=== PATIENT | female | born 1985 | race Caucasian/White ===

== ENCOUNTER 2016-08-04 17:24 | Emergency (ER) | payer OTHER ==
[2016-08-04 17:28] VITALS: BP 120/74
== END 2016-08-04 19:33 | disposition left against medical advice (07) ==
LOC: ED 17:24
DX: R10.9 Unspecified abdominal pain (principal)

== ENCOUNTER 2016-11-22 09:38 | Emergency (ER) | payer OTHER ==
[2016-11-22 09:56] VITALS: BP 136/84
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
--- NOTE | 2016-11-22 11:35 | RAD ---
Indication: Fall, left knee pain. 4 views of left knee demonstrates no joint effusion. No fractures identified. Joint spaces all well-preserved. IMPRESSION: UNREMARKABLE LEFT KNEE.
== END 2016-11-22 11:54 | disposition home or self-care (01) ==
LOC: UCEAST 09:38
DX: S80.02XA Contusion of left knee, initial encounter (principal); W17.89XA Other fall from one level to another, initial encounter; Y93.89 Activity, other specified; Y92.9 Unspecified place or not applicable; F17.210 Nicotine dependence, cigarettes, uncomplicated
CPT/HCPCS: 99212; G0463

== ENCOUNTER 2018-06-11 16:03 | Emergency (ER) | payer OTHER ==
--- OUTSIDE RECORDS SUMMARY | 2018-06-11 16:09 | XMS REPORT | Continuity of Care Document ---
:1985 External Reference #:[id number] Author Name Gianfranco Barnhart M.D. Address [address] [place] [address] Care Team Providers Name Role Phone Tsering Mohamud NP Care Team Information Supervisor [facility] Unavailable Payers Type Date Identification Numbers Payment Provider Subscriber Expires: 2011 Policy Number: [id number] [employer] Nilda Ulrich PayID: [id number] [address] [address] [place] [address] Effective: 2011 Policy Number: [employer] Nilda Ulrich [id number] Expires: 2015 PayID: [id number] [address] [address] [place] [address] Effective: 2015 Policy Number: Bryan Licea-Sebastian Nilda Ulrich [id number] Medicaid PayID: [id number] [address] [place] [address] Onset: 2011 Policy Number: [id number] [facility] [place] [facility] [employer] Nilda Ulrich PayID: [id number] [facility], [address] [place] [address] Advance Directives Description No Information Available Problems Date Description Provider Status Onset: 05/06/2015 Vitamin D deficiency JANICE Dodson Active Onset: 05/06/2015 Mild recurrent major depression JANICE Dodson Active Onset: 05/06/2015 Anxiety state JANICE Dodson Active Family History Date Family Member(s) Problem(s) Comments : (age 22 Years) Father due to Accident Mother Healthy First Sister Healthy Social History Type Date Description Comments Sex Unknown Lives With Sons Smoke-Free Home is smoke-free 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 Works 3rd shift. 10:15-6:30 5 days a week. Tobacco Use Start: Unknown current cigarette smoker ETOH Use Rarely consumes alcohol Recreational Drug Use Denies Drug Use Tobacco Use Start: Unknown Patient is a current smoker, smokes every day Smoking Status Reviewed: 07/26/16 Patient is a current smoker, smokes every day Seat Belt/Car Seat always uses seat belt Currently Active Patient is currently sexually active STD's 2009 PID Allergies, Adverse Reactions, Alerts Date Description Reaction Status Severity Comments 08/27/2009 Latex Active rash 04/28/2014 Neosporin red itchy rash Active 03/28/2008 NKDA Inactive Medications Medication Date Status Form Strength Qnty SIG Indications Ordering Provider Methocarbamol 05/14 Active Tablets 500mg 30tab 1-2 po qid M54.5 s prn Amol Barnhart Nicotrol 04/04 Active Inhaler 10mg 168un inhale 1 Z72.0 its cartridge denita Barnhart M.D. orally repeatedly like a cigarette 16 times per day as needed for smoking cessation Tylenol Extra Active Tablets 500mg 2 tabs by Unknown Strength /0000 mouth every 6 hours prn - last dose 0700 Vitamin D3 Active Capsules 5000Unit 1 po qd Unknown /0000 Drospirenone-Eth Active Tablets 3-0.03mg Take One Unknown inyl Estradiol /0000 Tablet By Mouth Every Day Methocarbamol 08/11 Hx Tablets 750mg 45tab take one M54.5 s tablet by Ranjan, - mouth [employer] 03/01 times a day as needed for muscle spasm; maximum daily dose=3 Naproxen 07/11 Hx Tablets 500mg 60tab 1 by mouth N64.59 s twice a Ranjan, - day (every [employer] 09/05 12 hrs) for 3 days for pain and inflammati on then as needed once a day Amoxicillin 09/20 Hx Tablets 875mg 20tab 1 tablet J02.0 Dulce /2017 s twice a Ranjan, - day x 10 [employer] Metformin HCL 07/26 Hx Tablets 500mg 60tab take one E28.2 Dulce s tablet by Ranjan, - mouth [employer] 11/04 twice a day Ergocalciferol 06/08 Hx Capsules [id number] 12cap 1 tab by s mouth Ranjan, - every week [employer] 02/28 x Escitalopram 06/07 Hx Tablets 10mg 45tab 1 07/25 by F32.9 Dulce Oxalate s mouth Ranjan, - every day [employer] 03/01 Hydroxyzine HCL 06/07 Hx Tablets 10mg 45tab 1 -3 Dulce s tablet by Ranjan, - mouth 4 [employer] 03/01 times day as needed for anxiety Hydroxyzine HCL 06/05 Hx Tablets 10mg 45tab 1 -3 F41.9 s tablet by Ranjan, - mouth 4 [employer] 06/07 times day as needed for anxiety Escitalopram 06/05 Hx Tablets 20mg 30tab take one F32.9 Dulce Oxalate s tablet by Ranjan, - mouth [employer] 06/07 every day, Ergocalciferol 05/07 Hx Capsules [id number] 12cap 1 tab by Dulce s mouth Ranjan, - every week [employer] 06/07 x Ergocalciferol 08/18 Hx Capsules [id number] 12cap 1 tab by s mouth Obey, - every week M.D. 05/06 x No Active 08/12 Hx Unknown Medications - 08/12 Escitalopram 08/12 Hx Tablets 10mg 30tab 1 by mouth F32.9 Dulce Oxalate /2014 s every day Ranjan, - [employer] 06/05 Sulfamethoxazole 04/28 Hx Tablets 800-160mg 10tab take 1 Dulce /Trimethoprim s tablet Ranjan, - twice a [employer] 08/11 day for days Prednisone 11/12 Hx Tablets 50mg 5tabs one pill 724.5 po daily Ranjan, - for 5 days [employer] 12/03 Carisoprodol 11/12 Hx Tablets 350mg 40for 1 tablet 724.5 ty qid prn Ranjan, - muscle [employer] 08/11 spasm Hydrocodone/Acet 11/12 Hx Tablets 5-325mg 15fif 1 po q6 724.5 Dulce amino teen hrs prn Ranjan, - severe [employer] 08/11 pain Ilotycin 06/07 Hx Ointment 5mg/GM 1unit apply a 371.9 s thin layer Ranjan, - to right [employer] 11/12 eye qid X 1 week Prednisone 03/08 Hx Tablets 50mg 5tabs one pill 724.9 po daily Ranjan, - for 5 days [employer] 11/12 Robaxin 03/08 Hx Tablets 500mg 60tab take on 724.9 s tab po qid Ranjan, - [employer] 11/12 Clindamycin HCL 02/01 Hx Capsules 300mg 40cap take 1 528.5 s tablet Ranjan, - every 6 [employer] 11/12 hours 10 days Etodolac 11/13 Hx Tablets 400mg 60tab take one 724.3 s tablet by Amadou Romero, - mouth [employer] 11/12 times a day for pain and inflamatio n Gabapentin 11/13 Hx Capsules 300mg 60cap take 1 724.3 Shawnt s capsule by Amadou Romero, - mouth QHS [employer] 11/12 for nerve pain, may increase to bid after 4 days Clindamycin HCL 10/05 Hx Capsules 300mg 40cap take 1 528.5 Dulce s tablet Ranjan, - every 6 [employer] 11/13 hours 10 days Amoxicillin 10/03 Hx Tablets 875mg 20tab 1 tablet 528.5 s bid x 10 Ranjan, - days [employer] 11/13 Alprazolam 10/03 Hx Tablets 0.25mg 4tabs take 1 300.00 tablet po Ranjan, - 1 hour [employer] 11/12 prior to dental appt, november repeat X 1 if needed. Hydrocodone/Acet 10/03 Hx Tablets 5-325mg 15fif 1-2 tabs 528.5 Dulce aminophen teen po q 6 hrs Ranjan, - prn [employer] 11/12 Sertraline HCL 08/06 Hx Tablets 100mg 30tab 1 po qd s Ranjan, - [employer] 11/12 Hydrocodone/Acet 08/06 Hx Tablets 5-325mg 15fif 1 po q 6 Dulce aminophen teen hrs prn Ranjan, - [employer] 11/12 Sertraline HCL 07/09 Hx Tablets 50mg 30tab 1/2 tablet 311 s for 7 days Ranjan, - then 1 tab [employer] 08/06 po qd Methocarbamol 11/06 Hx Tablets 500mg 60tab 1 po qid 724.5 s as needed Ranjan, - for muscle [employer] 05/07 spasm Cyclobenzaprine 10/20 Hx Tablets 5mg 30tab 1-2 po tid 724.5 Dulce HCL s for muscle Ranjan, - spasm, november [employer] 05/07 cause drowsiness Ibuprofen 10/20 Hx Tablets 600mg 60tab take1 724.5 s tablet qid Ranjan, - prn pain, [employer] 11/06 take with food Hydrocodone/Acet 10/20 Hx Tablets 5-325mg 15fif 1 po q6 724.5 Dulce aminophen teen hrs prn Ranjan, - severe [employer] 11/12 pain Proctosol HC 08/12 Hx Cream 2.5% 28.35 apply bid 0gm prn Dyllan Barnhart M.DValerie 11/09 Hydrocortisone 08/12 Hx Suppository 25mg 12uni Insert 1 ts suppositor Obey, - y rectally M.DValerie 11/09 2 times a day for 2 weeks for hemorrhoid s Cephalexin 10/04 Hx Capsules 500mg 21cap 1 po tid 682.9 Flor s Dyllan Bro M.D., 03/07 R.D. 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 Nick, - n 15 lbs [employer] 03/07 Lidocaine 10/08 Hx Solution 2% 100ml 15 ml po Gianfranco q3-4hr prn Dyllan Barnhart M.D. 11/23 Penicillin V 08/27 Hx Tablets 500mg 20tab 1 bid x 10 034.0 Gianfranco s Dyllan Barnhart M.D. 11/23 Excuse For Work 08/27 Hx Needs to 034.0 be out of Dyllan Barnhart work [place] 09/06 08/27-08/28/09 due to strep throat Bactrim DS 07/14 Hx Tablets 800-160mg 6tabs 1 po bid x 599.0 3 days Dyllan Barnhart M.D. 10/12 Physical Therapy 04/07 Hx eval and 726.19 treat left R. Nick, - shoulder [employer] 03/07 pain Etodolac 04/03 Hx Tablets 400mg 30tab 1 po tid 726.19 s for pain R. Nick, - and [employer] 03/07 inflamatio n Percocet 04/03 Hx Tablets 5-325mg 20twe 1-2 tabs 726.19 nty po q6hr Kirby. Nick, - prn pain [employer] 03/07 No Work 04/03 Hx no work 726.19 due to Kirby. Nick, - injury, [employer] 03/07 re-evaluat e Tues Apr 07 2009 Relafen 11/11 Hx Tablets 750mg 60tab take one 724.9 s pill with K.W. - food twice Usman, 03/07 daily with M.D. food for relief of inflammati on Flexeril 11/11 Hx Tablets 10mg 30tab 1 po tid 724.9 s prn back K.W. - pain, Usman, 03/07 muscle M.D. spasms Triamcinolone 06/06 Hx Cream 0.1% 15gm Apply To Affected Obey, - Area bid M.D. 09/04 Work Restriction 02/27 Hx needs to work for 4 Barnhart, - hours per M.D. 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 03/07 05/22 Hx Tablets 30tab 1 qd Gianfranco Dyllan Meyers M.DValerie 03/07 Ranitidine 10/29 Hx Tablets 150mg 60tab 1 po bid tammy Barnhart - M.D. 05/22 [employer] 06/27 Hx Tablets 10mg 6tabs Take On Pill Stat Obey, - Upon Onset M.D. 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 07/15 return to school on:12/09/02 Ortho Evra Hx 3unit one patch Unknown Contraceptive /0000 s once per Patch - week for 3 07/15 weeks, then one week without patch each month Control Hx Unknown Pill /0000 - 08/11 Ocella Hx Tablets 3-0.03mg Take One Unknown /0000 Tablet By - Mouth 04/04 Every Day /2017 Medications Administered in Office Medication Date Status Form Strength Qnty SIG Indications Ordering Provider TB,Intradermal Administered Injection Dulce (PPD, Mantoux) 012 JANICE Molina TB,Intradermal Administered Injection Dulce (PPD, Mantoux) 011 JANICE Molina TB,Intradermal Administered Injection Lab and (PPD, Mantoux) 009 Office Services Immunizations CPT Code Status Date Vaccine Lot # [id number] Given 04/18/2018 Influenza Virus Vaccine, Quadrivalent, 3 Yr > [id number] Quad, Preserv Free 18219 Given 07/11/2017 Influenza Virus Vaccine, Quadrivalent, 3 Yr > [id number] Quad, Preserv Free 14633 Given 07/26/2016 Tdap (Adacel) [id number] 14213 Given 08/06/2009 H1N1 Influenza Vaccine [id number] 85585 Given 08/06/2009 H1N1 Immunization Administration, Including Counseling 54607 Refused 04/04/2018 Influenza Virus Vaccine, Quadrivalent, 3 Yr > Quad , Preserv Free 26588 Refused 07/26/2016 Influenza Virus Vaccine, Quadrivalent, 3 Yr > Quad , Preserv Free Vital Signs Date Vital Result Comment 05/14/2018 2:10pm Weight 236.00 lb Weight 107.050 kg BP Systolic 128 mmHg BP Diastolic 80 mmHg Heart Rate 84 /min Body Temperature 97.5 F Respiratory Rate 16 /min 04/18/2018 3:43pm Weight 240.00 lb Weight 108.864 kg BP Systolic 100 mmHg BP Diastolic 68 mmHg Heart Rate 72 /min Body Temperature 98.2 F Respiratory Rate 16 /min 04/04/2018 10:50am Weight 236.00 lb Weight 107.050 kg BP Systolic 110 mmHg BP Diastolic 68 mmHg Heart Rate 88 /min Body Temperature 98.8 F Respiratory Rate 16 /min 03/08/2018 3:19pm Weight 233.00 lb Weight 105.689 kg BP Systolic 132 mmHg BP Diastolic 76 mmHg Heart Rate 80 /min Body Temperature 97.8 F Respiratory Rate 12 /min 03/01/2018 10:24am Weight 237.00 lb Weight 107.503 kg BP Systolic 103 mmHg BP Diastolic 80 mmHg Heart Rate 64 /min Body Temperature 97.7 F O2 % BldC Oximetry 99 % 09/05/2017 3:15pm Weight 235.00 lb Weight 106.596 kg BP Systolic 110 mmHg BP Diastolic 80 mmHg Heart Rate 72 /min Body Temperature 97.7 F Respiratory Rate 14 /min Height 62 inches 5'2" BMI (Body Mass Index) 43.0 kg/m2 08/11/2017 12:03pm Weight 235.00 lb Weight 106.596 kg BP Systolic 130 mmHg BP Diastolic 72 mmHg Heart Rate 78 /min Body Temperature 97.3 F Respiratory Rate 16 /min O2 % BldC Oximetry 98 % 07/11/2017 3:08pm Weight 232.00 lb Weight 105.235 kg BP Systolic 128 mmHg BP Diastolic 72 mmHg Heart Rate 80 /min Body Temperature 98.6 F Respiratory Rate 15 /min O2 % BldC Oximetry 98 % 01/04/2017 11:24am Weight 239.00 lb Weight 108.410 kg BP Systolic 118 mmHg BP Diastolic 76 mmHg Heart Rate 84 /min Body Temperature 97.5 F Respiratory Rate 16 /min 11/22/2016 5:00pm Weight 240.00 lb Weight 108.864 kg BP Systolic 114 mmHg BP Diastolic 78 mmHg Heart Rate 72 /min Body Temperature 97.9 F Respiratory Rate 14 /min O2 % BldC Oximetry 98 % 09/20/2016 10:14am Weight 237.50 lb Weight 107.730 kg BP Systolic 110 mmHg BP Diastolic 66 mmHg Heart Rate 100 /min Body Temperature 99.2 F Respiratory Rate 18 /min O2 % BldC Oximetry 98 % 07/26/2016 11:35am Weight 234.00 lb Weight 106.142 kg BP Systolic 96 mmHg BP Diastolic 64 mmHg Heart Rate 83 /min Body Temperature 98.0 F Respiratory Rate 16 /min Height 62.5 inches 5'2.50" BMI (Body Mass Index) 42.1 kg/m2 O2 % BldC Oximetry 98 % 06/07/2016 2:23pm Weight 235.00 lb Weight 106.596 kg BP Systolic 117 mmHg BP Diastolic 78 mmHg Heart Rate 76 /min 06/05/2015 8:50am Weight 232.00 lb Weight 105.235 kg BP Systolic 116 mmHg BP Diastolic 80 mmHg Heart Rate 76 /min Height 62.5 inches 5'2.50" BMI (Body Mass Index) 41.8 kg/m2 05/06/2015 9:01am Weight 226.00 lb Weight 102.514 kg BP Systolic 110 mmHg BP Diastolic 78 mmHg Heart Rate 62 /min 08/12/2014 4:44pm Weight 232.00 lb Weight 105.235 kg BP Systolic 110 mmHg BP Diastolic 78 mmHg Heart Rate 76 /min 04/28/2014 11:22am Weight 247.00 lb Weight 112.039 kg BP Systolic 110 mmHg BP Diastolic 70 mmHg Heart Rate 72 /min Body Temperature 97.6 F 12/23/2013 2:32pm Weight 253.00 lb Weight 114.761 kg BP Systolic 106 mmHg BP Diastolic 52 mmHg Heart Rate 84 /min Body Temperature 97.6 F 12/03/2013 3:52pm Weight 257.00 lb Weight 116.575 kg BP Systolic 122 mmHg BP Diastolic 76 mmHg Heart Rate 80 /min Body Temperature 98.1 F Height 62.5 inches 5'2.50" BMI (Body Mass Index) 46.3 kg/m2 11/12/2013 3:06pm Weight 261.00 lb Weight 118.390 kg BP Systolic 112 mmHg BP Diastolic 78 mmHg Heart Rate 72 /min Last Menstrual Period [id number] 06/07/2013 9:25am Weight 258.00 lb Weight 117.029 kg BP Systolic 100 mmHg BP Diastolic 70 mmHg Heart Rate 96 /min Body Temperature 97.2 F Right Visual Acuity Distance 20/25 corrected Left Visual Acuity Distance 20/50 corrected Both Visual Acuity Distance 20/20 corrected 03/08/2013 11:27am Weight 252.00 lb Weight 114.307 kg BP Systolic 130 mmHg BP Diastolic 76 mmHg Heart Rate 84 /min Body Temperature 97.9 F 02/01/2013 10:43am Weight 253.00 lb Weight 114.761 kg BP Systolic 110 mmHg BP Diastolic 70 mmHg Heart Rate 72 /min Body Temperature 97.8 F 2012 10:24am Weight 249.00 lb Weight 112.946 kg BP Systolic 99 mmHg BP Diastolic 74 mmHg Heart Rate 76 /min 10/05/2012 3:04pm BP Systolic 118 mmHg BP Diastolic 66 mmHg Heart Rate 76 /min Body Temperature 98.4 F 10/03/2012 3:30pm Weight 246.00 lb Weight 111.586 kg BP Systolic 120 mmHg BP Diastolic 78 mmHg Heart Rate 76 /min Body Temperature 97.8 F 08/06/2012 4:09pm Weight 241.00 lb Weight 109.318 kg BP Systolic 100 mmHg BP Diastolic 78 mmHg Heart Rate 88 /min 07/09/2012 4:02pm Weight 242.00 lb Weight 109.771 kg BP Systolic 114 mmHg BP Diastolic 68 mmHg Heart Rate 88 /min 05/07/2012 1:37pm Weight 235.00 lb Weight 106.596 kg BP Systolic 102 mmHg BP Diastolic 60 mmHg Heart Rate 89 /min Height 62 inches 5'2" BMI (Body Mass Index) 43.0 kg/m2 04/10/2012 2:16pm Weight 238.00 lb Weight 107.957 kg BP Systolic 96 mmHg BP Diastolic 64 mmHg Heart Rate 100 /min Body Temperature 99.2 F O2 % BldC Oximetry 98 % AT Room Air 01/16/2012 3:37pm Weight 230.00 lb Weight 104.328 kg BP Systolic 100 mmHg BP Diastolic 70 mmHg Heart Rate 108 /min 12/30/2011 2:13pm Weight 230.00 lb Weight 104.328 kg BP Systolic 110 mmHg BP Diastolic 70 mmHg Heart Rate 80 /min 12/21/2011 11:38am Weight 230.00 lb Weight 104.328 kg BP Systolic 116 mmHg BP Diastolic 70 mmHg Heart Rate 72 /min Body Temperature 98.7 F 12/06/2011 3:45pm Weight 226.00 lb Weight 102.514 kg BP Systolic 100 mmHg BP Diastolic 80 mmHg Heart Rate 88 /min 11/23/2011 2:58pm Weight 224.00 lb Weight 101.606 kg BP Systolic 106 mmHg BP Diastolic 70 mmHg Heart Rate 100 /min 11/14/2011 9:48am Weight 224.00 lb Weight 101.606 kg BP Systolic 100 mmHg BP Diastolic 80 mmHg Heart Rate 92 /min 11/07/2011 11:16am Weight 222.00 lb Weight 100.699 kg BP Systolic 100 mmHg BP Diastolic 64 mmHg Heart Rate 88 /min Body Temperature 98.4 F 10/21/2011 4:06pm Weight 220.00 lb Weight 99.792 kg BP Systolic 110 mmHg BP Diastolic 62 mmHg Heart Rate 88 /min Body Temperature 99.0 F 08/12/2011 12:58pm Weight 218.00 lb Weight 98.885 kg BP Systolic 106 mmHg BP Diastolic 80 mmHg Heart Rate 72 /min 03/07/2011 1:33pm Weight 230.00 lb Weight 104.328 kg BP Systolic 108 mmHg BP Diastolic 70 mmHg Heart Rate 72 /min Height 62.25 inches 5'2.25" BMI (Body Mass Index) 41.7 kg/m2 10/04/2010 2:57pm Weight 242.00 lb Weight 109.771 kg BP Systolic 118 mmHg BP Diastolic 74 mmHg Heart Rate 80 /min Body Temperature 98.0 F 09/21/2010 9:37am Weight 240.00 lb Weight 108.864 kg BP Systolic 102 mmHg BP Diastolic 70 mmHg Heart Rate 64 /min Body Temperature 98.4 F 11/23/2009 11:33am Weight 232.00 lb Weight 105.235 kg BP Systolic 100 mmHg BP Diastolic 70 mmHg Heart Rate 80 /min 10/08/2009 4:53pm Weight 225.00 lb Weight 102.060 kg BP Systolic 104 mmHg BP Diastolic 82 mmHg Heart Rate 84 /min 08/27/2009 3:20pm Weight 287.00 lb Weight 130.183 kg BP Systolic 90 mmHg BP Diastolic 60 mmHg Heart Rate 96 /min Body Temperature 98.9 F 07/14/2009 3:54pm Weight 232.00 lb Weight 105.235 kg BP Systolic 108 mmHg BP Diastolic 8 mmHg Heart Rate 60 /min Body Temperature 97.9 F Last Menstrual Period [id number] 04/07/2009 11:19am Weight 244.00 lb Weight 110.678 kg BP Systolic 106 mmHg BP Diastolic 70 mmHg Heart Rate 88 /min 04/03/2009 2:26pm Weight 241.00 lb Weight 109.318 kg BP Systolic 118 mmHg BP Diastolic 72 mmHg Heart Rate 76 /min 11/11/2008 11:49am Weight 239.00 lb Weight 108.410 kg BP Systolic 112 mmHg BP Diastolic 68 mmHg Heart Rate 76 /min Body Temperature 98.3 F 09/03/2008 11:46am Weight 229.00 lb Weight 103.874 kg BP Systolic 118 mmHg BP Diastolic 80 mmHg Heart Rate 78 /min Respiratory Rate 18 /min 06/06/2008 11:47am Weight 221.00 lb Weight 100.246 kg BP Systolic 110 mmHg BP Diastolic 60 mmHg Heart Rate 64 /min Body Temperature 98.3 F oral 03/28/2008 11:41am Weight 221.00 lb Weight 100.246 kg BP Systolic 110 mmHg BP Diastolic 68 mmHg Heart Rate 58 /min 05/22/2007 3:33pm Weight 218.00 lb Weight 98.885 kg BP Systolic 112 mmHg BP Diastolic 78 mmHg Heart Rate 72 /min 04/03/2007 10:23am Weight 211.00 lb Weight 95.710 kg BP Systolic 110 mmHg BP Diastolic 70 mmHg Heart Rate 60 /min Respiratory Rate 18 /min 06/21/2006 2:05pm Weight 226.00 lb Weight 102.514 kg BP Systolic 100 mmHg BP Diastolic 60 mmHg Heart Rate 64 /min 12/15/2005 4:09pm Weight 226.00 lb Weight 102.514 kg BP Systolic 98 mmHg BP Diastolic 62 mmHg Heart Rate 68 /min 10/21/2004 4:44pm Weight 248.00 lb Weight 112.493 kg BP Systolic 110 mmHg BP Diastolic 70 mmHg Heart Rate 80 /min Body Temperature 97.3 F Respiratory Rate 18 /min 07/15/2004 2:54pm Weight 239.00 lb Weight 108.410 kg BP Systolic 110 mmHg BP Diastolic 70 mmHg 06/27/2003 2:14pm Weight 221.00 lb Weight 100.246 kg BP Systolic 120 mmHg BP Diastolic 80 mmHg Weight Percentile >95th 11/25/2002 3:51pm Weight 201.00 lb Weight 91.174 kg BP Systolic 120 mmHg BP Diastolic 80 mmHg Weight Percentile >95th Results Test Date Facility Test Result H/L Range Note Urine DIP 04/04/2018 [facility] Leukocytes NEG Neg (607)- - Urine Nitrites NEG Neg Urobilinogen NORM Norm Total Protein, Urine NEG Neg Urine pH 6 5-6 Urine Blood NEG Neg Specific [place] 1.010 1.01-1.02 Urine Ketones NEG Neg Urine Bilirubin NEG Neg Urine Glucose NORM Norm Urine DIP 03/01/2018 [facility] Leukocytes NEG Neg (607)- - Urine Nitrites NEG Neg Urobilinogen NORM Norm Total Protein, Urine NEG Neg Urine pH 5 5-6 Urine Blood NEG Neg Specific [place] 1.015 1.01-1.02 Urine Ketones NEG Neg Urine Bilirubin NEG Neg Urine Glucose NORM Norm Laboratory test 03/01/2018 [facility] Vitamin D Total 42.8 20-50 finding [phone] 25(Oh) ng/mL Testosterone Free 03/01/2018 [facility] Free 0.19 0.06-1.03 1 & Total [phone] Testosterone ng/dL ng/dl Testosterone 31 ng/dL 8-60 2 Laboratory test 03/01/2018 [facility] Prolactin 5.4 ng/mL 1.0-25.0 finding [phone] Laboratory test 03/01/2018 [facility] Vitamin D Total <pending> finding [phone] 25(Oh) CBC Auto Diff 03/01/2018 [facility] White Blood 7.2 3.5-10.8 [phone] Count 10^3/uL Red Blood Count 4.19 10^6/uL 4.00-5.40 Hemoglobin 12.8 g/dL 12.0-16.0 Hematocrit 36 % 35-47 Mean Corpuscular Volume 86 fL 80-97 Mean Corpuscular Hemoglobin 31 pg 27-31 Mean Corpuscular HGB Conc 35 g/dL 31-36 Red Cell Distribution Width 13 % 10.5-15 Platelet Count 324 10^3/uL 150-450 Mean Platelet Volume 8.5 um3 7.4-10.4 Abs Neutrophils 3.9 10^3/uL 1.5-7.7 Abs Lymphocytes 2.7 10^3/uL 1.0-4.8 Abs Monocytes 0.4 10^3/uL 0-0.8 Abs Eosinophils 0.1 10^3/uL 0-0.6 Abs Basophils 0.1 10^3/uL 0-0.2 Abs Nucleated RBC 0 10^3/uL Granulocyte % 54.1 % 38-83 Lymphocyte % 37.5 % 25-47 Monocyte % 5.3 % 0-7 Eosinophil % 2.0 % 0-6 Basophil % 1.1 % 0-2 Nucleated Red Blood Cells % 0 Fractionated Estrogens 03/01/2018 [facility] Estrone ( E1) 54 pg/mL 3 [phone] Estradiol (E2) 15 pg/mL 4 Comp Metabolic Panel 03/01/2018 [facility] Sodium 138 mmol/L 135-145 [phone] Potassium 4.1 mmol/L 3.5-5.0 Chloride 109 mmol/L 101-111 Co2 Carbon Dioxide 22 mmol/L 22-32 Anion Gap 7 mmol/L 2-11 Glucose 145 mg/dL High 70-100 Blood Urea Nitrogen 6 mg/dL 6-24 Creatinine 0.70 mg/dL 0.51-0.95 BUN/Creatinine Ratio 8.6 8-20 Calcium 9.1 mg/dL 8.6-10.3 Total Protein 6.1 g/dL Low 6.4-8.9 Albumin 3.8 g/dL 3.2-5.2 Globulin 2.3 g/dL 2-4 Albumin/Globulin Ratio 1.7 1-3 Total Bilirubin 0.30 mg/dL 0.2-1.0 Alkaline Phosphatase 41 U/L 34-104 Alt 11 U/L 7-52 Ast 11 U/L Low 13-39 Egfr Non- 96.4 >60 Egfr 116.6 >60 5 Laboratory test 03/01/2018 [facility] TSH (Thyroid 2.21 0.34-5.60 finding [phone] Stimulating mcIU/mL Horm) Follicle Stimulating Hormone 3.8 mIU/mL 6 Luteinizing Hormone 5.2 mcIU/mL 7 Laboratory test 10/02/2017 [facility] Cytology SEE RESULT 8, 9 finding [phone] BELOW CBC Auto Diff 07/11/2017 [facility] White Blood 4.5 10^3/uL 3.5-5 [phone] Count 0.8 Red Blood Count 4.62 10^6/uL 4.0-5.4 Hemoglobin 13.9 g/dL 12.0-16.0 Hematocrit 41 % 35-47 Mean Corpuscular Volume 89 fL 80-97 Mean Corpuscular Hemoglobin 30 pg 27-31 Mean Corpuscular HGB Conc 34 g/dL 31-36 Red Cell Distribution Width 14 % 10.5-15 Platelet Count 341 10^3/uL 150-450 Mean Platelet Volume 9 um3 7.4-10.4 Abs Neutrophils 1.9 10^3/uL 1.5-7.7 Abs Lymphocytes 1.7 10^3/uL 1.0-4.8 Abs Monocytes 0.6 10^3/uL 0-0.8 Abs Eosinophils 0.1 10^3/uL 0-0.6 Abs Basophils 0.1 10^3/uL 0-0.2 Abs Nucleated RBC 0 10^3/uL Granulocyte % 42.9 % 38-83 Lymphocyte % 38.0 % 25-47 Monocyte % 14.3 % High 1-9 Eosinophil % 3.3 % 0-6 Basophil % 1.5 % 0-2 Nucleated Red Blood Cells % 0 Comp Metabolic Panel 07/11/2017 [facility] Sodium 137 mmol/L 133-145 [phone] Potassium 3.9 mmol/L 3.5-5.0 Chloride 107 mmol/L 101-111 Co2 Carbon Dioxide 28 mmol/L 22-32 Anion Gap 2 mmol/L 2-11 Glucose 88 mg/dL 70-100 Blood Urea Nitrogen 10 mg/dL 6-24 Creatinine 0.74 mg/dL 0.51-0.95 BUN/Creatinine Ratio 13.5 8-20 Calcium 9.3 mg/dL 8.6-10.3 Total Protein 6.2 g/dL Low 6.4-8.9 Albumin 3.9 g/dL 3.2-5.2 Globulin 2.3 g/dL 2-4 Albumin/Globulin Ratio 1.7 1-3 Total Bilirubin 0.30 mg/dL 0.2-1.0 Alkaline Phosphatase 50 U/L 34-104 Alt 13 U/L 7-52 Ast 14 U/L 13-39 Egfr Non- 91.0 >60 Egfr 117.0 >60 10 Laboratory test 07/11/2017 [facility] TSH (Thyroid 0.98 mcIU/mL 0.34-5.60 11 finding [phone] Stim Horm) Prolactin 8.1 ng/mL 1.0-25.0 12 Laboratory test 07/11/2017 In House Lab HCG DIP Test neg Neg finding (607)- - CBC Auto Diff 01/04/2017 [facility] White Blood 10.8 3.5-10.8 [phone] Count 10^3/uL Red Blood Count 4.59 10^6/uL 4.0-5.4 Hemoglobin 13.6 g/dL 12.0-16.0 Hematocrit 41 % 35-47 Mean Corpuscular Volume 89 fL 80-97 Mean Corpuscular Hemoglobin 30 pg 27-31 Mean Corpuscular HGB Conc 33 g/dL 31-36 Red Cell Distribution Width 14 % 10.5-15 Platelet Count 289 10^3/uL 150-450 Mean Platelet Volume 10 um3 7.4-10.4 Abs Neutrophils 6.7 10^3/uL 1.5-7.7 Abs Lymphocytes 2.9 10^3/uL 1.0-4.8 Abs Monocytes 0.7 10^3/uL 0-0.8 Abs Eosinophils 0.3 10^3/uL 0-0.6 Abs Basophils 0.1 10^3/uL 0-0.2 Abs Nucleated RBC 0.01 10^3/uL Granulocyte % 62.2 % 38-83 Lymphocyte % 27.0 % 25-47 Monocyte % 6.8 % 1-9 Eosinophil % 3.2 % 0-6 Basophil % 0.8 % 0-2 Nucleated Red Blood Cells % 0.1 Inr/Protime 01/04/2017 [facility] Inr 0.89 0.89- 1.11 [phone] Laboratory test 01/04/2017 [facility] Vitamin D 16.8 Low 30-50 13 finding [phone] Total 25(Oh) ng/mL Comp Metabolic 01/04/2017 [facility] Sodium 137 133-145 Panel [phone] mmol/L Potassium 4.0 mmol/L 3.5-5.0 Chloride 106 mmol/L 101-111 Co2 Carbon Dioxide 27 mmol/L 22-32 Anion Gap 4 mmol/L 2-11 Glucose 103 mg/dL High 70-100 Blood Urea Nitrogen 10 mg/dL 6-24 Creatinine 0.67 mg/dL 0.51-0.95 BUN/Creatinine Ratio 14.9 8-20 Calcium 9.3 mg/dL 8.6-10.3 Total Protein 6.3 g/dL Low 6.4-8.9 Albumin 4.0 g/dL 3.2-5.2 Globulin 2.3 g/dL 2-4 Albumin/Globulin Ratio 1.7 1-3 Total Bilirubin 0.30 mg/dL 0.2-1.0 Alkaline Phosphatase 45 U/L 34-104 Alt 8 U/L 7-52 Ast 12 U/L Low 13-39 Egfr Non- 102.0 >60 Egfr 131.2 >60 14 GC/Chlamydia 11/22/2016 [facility] Chlamydia Negative Negative Amplified Rna [phone] trachomatis Rna Neisseria gonorrhoeae (GC) Rna Negative Negative Laboratory test 11/22/2016 [facility] Gardnerella/ Yeast: SEE RESULT 15 finding [phone] Vaginal Dna BELOW Trichomonas Vaginalis Rna Negative Negative 16 Urine DIP 11/22/2016 In House Lab Leukocytes NEG Neg (607)- - Urine Nitrites NEG Neg Urobilinogen NORM Norm Total Protein, Urine NEG Neg Urine pH 5 5-6 Urine Blood NEG Neg Specific [place] 1.015 1.01-1.02 Urine Ketones NEG Neg Urine Bilirubin NEG Neg Urine Glucose NORM Norm Laboratory test finding 11/22/2016 In House Lab Test, Urine negative (607)- - Flu Test A, B, Or A & 09/20/2016 In House Lab Influenza A Antigen neg B,Binaxn (607)- - Influenza B Antigen neg Laboratory test 09/20/2016 In House Lab Strep Screen pos Neg finding (607)- - Laboratory test 07/26/2016 [facility] Hemoglobin A1c 5.5 % Less than 17 finding [phone] (Glyco HGB) 6.0 CBC Auto Diff 07/26/2016 [facility] White Blood 7.3 3.5-10.8 [phone] Count 10^3/uL Red Blood Count 4.57 10^6/uL 4.0-5.4 Hemoglobin 13.7 g/dL 12.0-16.0 Hematocrit 41 % 35-47 Mean Corpuscular Volume 89 fL 80-97 Mean Corpuscular Hemoglobin 30 pg 27-31 Mean Corpuscular HGB Conc 34 g/dL 31-36 Red Cell Distribution Width 14 % 10.5-15 Platelet Count 380 10^3/uL 150-450 Mean Platelet Volume 9 um3 7.4-10.4 Abs Neutrophils 3.8 10^3/uL 1.5-7.7 Abs Lymphocytes 2.7 10^3/uL 1.0-4.8 Abs Monocytes 0.5 10^3/uL 0-0.8 Abs Eosinophils 0.2 10^3/uL 0-0.6 Abs Basophils 0 10^3/uL 0-0.2 Abs Nucleated RBC 0 10^3/uL Granulocyte % 52.4 % 38-83 Lymphocyte % 36.5 % 25-47 Monocyte % 7.6 % 1-9 Eosinophil % 3.0 % 0-6 Basophil % 0.5 % 0-2 Nucleated Red Blood Cells % 0 Comp Metabolic Panel 07/26/2016 [facility] Sodium 138 mmol/L 133-145 [phone] Potassium 3.8 mmol/L 3.5-5.0 Chloride 105 mmol/L 101-111 Co2 Carbon Dioxide 28 mmol/L 22-32 Anion Gap 5 mmol/L 2-11 Glucose 103 mg/dL High 70-100 Blood Urea Nitrogen 12 mg/dL 6-24 Creatinine 0.71 mg/dL 0.51-0.95 BUN/Creatinine Ratio 16.9 8-20 Calcium 9.4 mg/dL 8.6-10.3 Total Protein 6.1 g/dL Low 6.4-8.9 Albumin 4.0 g/dL 3.2-5.2 Globulin 2.1 g/dL 2-4 Albumin/Globulin Ratio 1.9 1-3 Total Bilirubin 0.30 mg/dL 0.2-1.0 Alkaline Phosphatase 52 U/L 34-104 Alt 14 U/L 7-52 Ast 15 U/L 13-39 Egfr Non- 96.0 >60 Egfr 123.5 >60 18 Lipid Profile 07/26/2016 [facility] Triglycerides 51 mg/dL 19 (Trig/Chol/HDL) [phone] Cholesterol 154 mg/dL 20 HDL Cholesterol 40.7 mg/dL 21 LDL Cholesterol 103 mg/dL 22 Laboratory test 06/07/2016 [facility] TSH (Thyroid 2.32 mcIU/mL 0.34-5.60 23 finding [phone] Stim Horm) Vitamin D Total 25(Oh) 16.3 ng/mL Low 30-50 24 HCG < 0.60 mIU/mL 25 GC/Chlamydia 12/14/2015 [facility] Chlamydia Negative Negative 26 Amplified Rna [phone] trachomatis Rna Neisseria gonorrhoeae (GC) Rna Negative Negative Laboratory test 12/14/2015 [facility] HPV Rna Negative Negative 27 finding [phone] Ww/Reflex Genotype Cytology SEE RESULT BELOW 28 Laboratory test 05/06/2015 [facility] Vitamin D 24.2 ng/mL Low 30-50 finding [phone] Total 25(Oh) Vitamin B12 296 pg/mL [phone] 29 Laboratory test 08/12/2014 [facility] TSH (Thyroid 2.14 0.34-5.60 finding [phone] Stimulating IU/mL Horm) CMP - 08/12/2014 [facility] Sodium 138 133-145 Comprehensive [phone] mmol/L Metabolic Potassium 4.0 mmol/L 3.5-5.0 Chloride 106 mmol/L 101-111 Co2 Carbon Dioxide 27 mmol/L 22-32 Anion Gap 5 mmol/L 2-11 Glucose 86 mg/dL 70-100 Blood Urea Nitrogen 12 mg/dL 6-24 Creatinine 0.70 mg/dL 0.51-0.95 BUN/Creatinine Ratio 17.1 8-20 Calcium 9.2 mg/dL 8.6-10.3 Total Protein 6.6 g/dL 6.4-8.9 Albumin 4.2 g/dL 3.2-5.2 Globulin 2.4 g/dL 2-4 Albumin/Globulin Ratio 1.8 1-3 Total Bilirubin 0.30 mg/dL 0.2-1.0 Alkaline Phosphatase 59 U/L 34-104 Alt 9 U/L 7-52 Ast 11 U/L Low 13-39 Egfr Non- 98.9 >60 Egfr 127.2 >60 30 CBC - Complete 08/12/2014 [facility] White Blood 6.3 10^3/uL 4.8-10.8 Blood Count [phone] Count Red Blood Count 4.55 10^6/uL 4.0-5.4 Hemoglobin 14.0 g/dL 12.0-16.0 Hematocrit 41 % 35-47 Mean Corpuscular Volume 90 fL 80-97 Mean Corpuscular Hemoglobin 31 pg 27-31 Mean Corpuscular HGB Conc 34 g/dL 31-36 Red Cell Distribution Width 13 % 10.5-15 Platelet Count 327 10^3/uL 150-450 Mean Platelet Volume 9 um3 7.4-10.4 Vitamin D.25 08/12/2014 [facility] 25-Hydroxy Vitamin <4.0 ng/mL Hydroxy [phone] D2 25-Hydroxy Vitamin D3 15 ng/mL 25-Hydroxy Vitamin D Total 15 ng/mL 31 Urine DIP 04/28/2014 In House Lab Specific [place] 1.015 1.01-1.02 took o (607)- - Urine pH 6 5-6 Leukocytes trace Neg Urine Nitrites pos Neg Total Protein, Urine n/a Neg Urine Glucose neg Norm Urine Ketones norm Neg Urobilinogen neg Norm Urine Bilirubin n/a Neg Urine Blood 250 High Neg Urine Cult And 04/28/2014 [facility] Urine Culture ( SEE NOTE) 32 Sens-CMC Only [phone] CBC Auto Diff 12/03/2013 [facility] White Blood 7.3 10^3/uL 4.8-10. [phone] Count 8 Red Blood Count 4.70 10^6/uL 4.0-5.4 Hemoglobin 14.3 g/dL 12.0-16.0 Hematocrit 41 % 35-47 Mean Corpuscular Volume 87 fL 80-97 Mean Corpuscular Hemoglobin 30 pg 27-31 Mean Corpuscular HGB Conc 35 g/dL 31-36 Red Cell Distribution Width 13 % 10.5-15 Platelet Count 354 10^3/uL 150-450 Mean Platelet Volume 8 um3 7.4-10.4 Abs Neutrophils 3.3 10^3/uL 1.5-7.7 Abs Lymphocytes 3.1 10^3/uL 1.0-4.8 Abs Monocytes 0.6 10^3/uL 0-0.8 Abs Eosinophils 0.2 10^3/uL 0-0.6 Abs Basophils 0.1 10^3/uL 0-0.2 Abs Nucleated RBC 0.01 10^3/uL Granulocyte % 45.4 % 38-83 Lymphocyte % 42.8 % 25-47 Monocyte % 7.9 % 1-9 Eosinophil % 2.9 % 0-6 Basophil % 1.0 % 0-2 Nucleated Red Blood Cells % 0.1 Inr/Protime 12/03/2013 [facility] Inr 0.90 0.85- 1.06 [phone] Laboratory test 12/03/2013 [facility] Activated 34.1 24.0-36.1 finding [phone] Partial seconds Thrombo Time Urinalysis 08/02/2012 [facility] Urine Color Yellow [phone] Urine Appearance Clear Urine Specific [place] 1.004 Low 1.010-1.030 Urine Esterase Negative Negative Urine Nitrate Negative Negative Urine Urobilinogen Negative E.U./dL Negative Urine Protein Negative mg/dL Negative Urine pH 7.0 5-9 Urine Blood Negative Negative Urine Ketones Negative mg/dL Negative Urine Bilirubin Negative Negative 33 Urine Glucose Negative mg/dL Negative Comp Metabolic Panel 08/02/2012 [facility] Sodium 133 mmol/L 133-145 [phone] Potassium 3.6 mmol/L 3.5-5.0 Chloride 104 mmol/L 101-111 Co2 Carbon Dioxide 23.0 mmol/L 22-32 Anion Gap 6.0 mmol/L 2-11 Glucose 93 mg/dL 70-100 Blood Urea Nitrogen 6 mg/dL 6-24 Creatinine 0.60 mg/dL 0.50-1.40 BUN/Creatinine Ratio 10.0 8-20 Calcium 8.7 mg/dL 8.1-9.9 Total Protein 6.4 g/dL 6.2-8.1 Albumin 3.7 g/dL 3.6-5.4 Globulin 2.7 g/dL 2-4 Albumin/Globulin Ratio 1.4 1-3 Total Bilirubin 0.3 mg/dL Low 0.4-1.5 Alkaline Phosphatase 46 U/L 30-110 Alt 15 U/L 14-54 Ast 19 U/L 12-42 Egfr Non- 119.9 >60 Egfr 154.2 >60 34 CBC Auto 08/02/2012 [facility] White Blood 4.6 10^3/ uL Low 4.8-10.8 Diff [phone] Count Red Blood Count 4.31 10^6/uL 4.0-5.4 Hemoglobin 13.3 g/dL 12.0-16.0 Hematocrit 38 % 35-47 Mean Corpuscular Volume 88 fL 80-97 Mean Corpuscular Hemoglobin 31 pg 27-31 Mean Corpuscular HGB Conc 35 g/dL 31-36 Red Cell Distribution Width 13 % 10.5-15 Platelet Count 286 10^3/uL 150-450 Mean Platelet Volume 9 um3 7.4-10.4 Abs Neutrophils 3.3 10^3/uL 1.5-7.7 Abs Lymphocytes 0.5 10^3/uL Low 1.0-4.8 Abs Monocytes 0.6 10^3/uL 0-0.8 Abs Eosinophils 0.1 10^3/uL 0-0.6 Abs Basophils 0 10^3/uL 0-0.2 Abs Nucleated RBC 0 10^3/uL Granulocyte % 73.1 % 38-83 Lymphocyte % 10.1 % Low 25-47 Monocyte % 14.0 % High 1-9 Eosinophil % 2.2 % 0-6 Basophil % 0.6 % 0-2 Nucleated Red Blood Cells % 0.1 Laboratory test 08/02/2012 [facility] Lipase 22 U/L 22-51 finding [phone] CMP - Comprehensive 05/07/2012 [facility] Sodium 141 mmol/L 133-145 Metabolic [phone] Potassium 3.9 mmol/L 3.5-5.0 Chloride 108 mmol/L 101-111 Co2 Carbon Dioxide 28.0 mmol/L 22-32 Anion Gap 5.0 mmol/L 2-11 Glucose 98 mg/dL 70-100 Blood Urea Nitrogen 9 mg/dL 6-24 Creatinine 0.70 mg/dL 0.50-1.40 BUN/Creatinine Ratio 12.9 8-20 Calcium 9.4 mg/dL 8.1-9.9 Total Protein 5.8 GM/DL Low 6.2-8.1 Albumin 3.7 GM/DL 3.6-5.4 Globulin 2.1 GM/DL 2-4 Albumin/Globulin Ratio 1.8 1-3 Total Bilirubin 0.4 mg/dL 0.1-1.0 35 Alkaline Phosphatase 39 U/L 30-110 Alt 16 U/L 14-54 Ast 17 U/L 12-42 Egfr Non- 100.4 >60 Egfr 129.1 >60 36 Laboratory test 05/07/2012 [facility] TSH (Thyroid 1.23 0.34-5.60 finding [phone] Stimulating MIU/ML Horm) Beta HCG Quantitative < 2.1 MIU/ML 0.0-5.0 37 CBC Auto Diff 05/07/2012 [facility] White Blood 6.5 10^3/uL 4.8-10.8 [phone] Count Red Blood Count 4.19 10^6/uL 4.0-5.4 Hemoglobin 12.9 g/dL 12.0-16.0 Hematocrit 37 % 35-47 Mean Corpuscular Volume 89 fL 80-97 Mean Corpuscular Hemoglobin 31 pg 27-31 Mean Corpuscular HGB Conc 35 g/dL 31-36 Red Cell Distribution Width 14 % 10.5-15 Platelet Count 311 10^3/uL 150-450 Mean Platelet Volume 9 um3 7.4-10.4 Abs Neutrophils 3.3 10^3/uL 1.5-7.7 Abs Lymphocytes 2.7 10^3/uL 1.0-4.8 Abs Monocytes 0.3 10^3/uL 0-0.8 Abs Eosinophils 0.2 10^3/uL 0-0.6 Abs Basophils 0 10^3/uL 0-0.2 Abs Nucleated RBC 0 10^3/uL Granulocyte % 50.8 % 38-83 Lymphocyte % 40.9 % 25-47 Monocyte % 5.0 % 1-9 Eosinophil % 2.7 % 0-6 Basophil % 0.6 % 0-2 Nucleated Red Blood Cells % 0 Urine DIP 05/07/2012 In House Lab Leukocytes NEG Neg (607)- - Urine Nitrites NEG Neg Urine pH 5 5-6 Total Protein, Urine NEG Neg Urine Glucose NORM Norm Urine Ketones NEG Neg Urobilinogen NORM Norm Urine Bilirubin NEG Neg Urine Blood NEG Neg Specific [place] NA Low 1.01-1.02 Laboratory test 05/07/2012 In House Lab HCG DIP Test NEG Neg finding (607)- - Cytology 01/02/2012 [facility] Cytology 38 [phone] ----- <SEE NOTE> Comp Metabolic 11/28/2011 [facility] Sodium 139 mmol/ L 135-145 Panel [phone] Potassium 3.3 mmol/L Low 3.5-5.0 Chloride 106 mmol/L 101-111 Co2 (Carbon Dioxide) 25.0 mmol/L 22-32 Anion Gap 8.0 mmol/L 2-11 39 Glucose 110 mg/dL High 70-100 BUN 10 mg/dL 6-24 Creatinine 0.7 mg/dL 0.50-1.40 One Over Creatinine 1.42 BUN/Creatinine Ratio 14.3 8-20 Calcium 9.5 mg/dL 8.1-9.9 Total Protein 7.3 GM/DL 6.2-8.1 Albumin 3.9 GM/DL 3.6-5.4 Globulin 3.4 GM/DL 2-4 Albumin/Globulin Ratio 1.1 1-3 Bilirubin Total 0.3 mg/dL Low 0.4-1.5 40 Alkaline Phosphatase 50 U/L 30-110 Alt (SGPT) 14 U/L 14-54 Ast (Sgot) 21 U/L 12-42 eGFR Non- 100.4 > 60 eGFR 129.1 > 60 41 CBC Auto Diff 11/28/2011 [facility] White Blood 9.7 CUMM 4.8-10.8 [phone] Count Red Cell Count 4.43 CUMM 4.2-5.4 Hemoglobin 13.7 g/dL 12.0-16.0 Hematocrit 39 % 35-47 Mean Corpuscular Volume 89 um3 79-97 Mean Corpuscular Hemoglob 31 pg 27-31 Mean Corpuscular HGB Cone 35 g/dL 32-36 Redcell Distribution WDTH 13 % 10.5-15 Platelet Count 321 CUMM 150-450 Mean Platelet Volume 9.0 um3 7.4-10.4 Gran % 50.6 % 38-83 Lymph % 39.1 % 25-47 Mononuclear % 5.7 % 1-9 Eosinophil % 3.5 % 0-6 Basophil % 1.1 % 0-2 Abs Lymphs 3.8 1.0-4.8 Abs Mononuclear 0.6 0-0.8 Absolute Neutrophil Count 4.9 1.5-7.7 Abs Eosinophils 0.3 0-0.6 Abs Basophils 0.1 0-0.2 Laboratory test 11/28/2011 [facility] Troponin-I 0 NG /ML 0-0.06 42 finding [phone] D Dimer Quantitative < 200 NG/ML Less Than 230 43 Urine DIP 03/07/2011 In House Lab Leukocytes neg Neg (607)- - Urine Nitrites neg Neg Urine pH 7 High 5-6 Total Protein, Urine neg Neg Urine Glucose norm Norm Urine Ketones neg Neg Urobilinogen norm Norm Urine Bilirubin neg Neg Urine Blood neg Neg Specific [place] na Low 1.01-1.02 Urine Culture & 01/24/2011 [facility] Urine Culture ENTEROBACTER JENNIFER 44 Sensitivi [phone] Sensitivi <SEE NOTE> Sensitivities For 01/24/2011 [facility] Amikacin <=2 Urine Culture [phone] Ciprofloxacin <=0.25 Ceftriaxone <=1 Cefazolin >=64 Nitrofurantoin 64 Gentamicin <=1 Imipenem <=1 Levofloxacin <=0.12 Trimeth-Sulfa <=20 Ceftazidime <=1 Tigecycline 1 Piperacillin/Tazobactam <=4 Urinalysis 01/24/2011 [facility] Ua Color YELLOW Yellow W/Microscopic [phone] Appearance-Urine TURBID Clear Specific [place]-Ur 1.012 1.010-1.030 Esterase-Urine 2+ Negative Nitrite NEGATIVE Negative Glpjcytshgaf-Dm-BUY NEGATIVE Negative Protein-Urine TRACE Negative PH-Urine 6.0 5-9 Blood-Urine 2+ Negative Ketones-Urine NEGATIVE Negative Bilirubin-Ur NEGATIVE Negative Glucose-Urine NEGATIVE Negative WBC-Urine TNTC 0-5 RBC-Urine 0-2 0-2 Epith Cells-Ur MODERATE None Bacteria-Urine TRACE None Cytology 10/29/2010 [facility] Cytology --- 45 [phone] <SEE NOTE> Herpes Simplex 10/08/2009 [facility] Herpes This test was de 46 Culture [phone] Simplex PCR <SEE NOTE> GC Culture 10/06/2009 [facility] GC Culture NG 47 [phone] Throat Culture 10/06/2009 [facility] Throat NF 48 Full [phone] Culture Full Throat-Beta 10/05/2009 [facility] Throat-Beta NF 49 Strept [phone] Strep Culture Laboratory test 10/05/2009 [facility] Body Fluid MOD NUC^MOD NUCL 50 finding [phone] Smear <SEE NOTE> Body Fluid Cult Sens NG4 51 Herpes Simplex 10/05/2009 [facility] Herpes Simplex This test was 52 Culture [phone] PCR de <SEE NOTE> Anaerobic 10/02/2009 [facility] Anaerobic NG5 53 Culture Bottle [phone] Culture Bottle Aerobic 10/02/2009 [facility] Aerobic NG5 54 Culture Bottle [phone] Culture Bottle Wet Prep 10/01/2009 [facility] Wet Prep SMEAR 55 [phone] REVIEWED B <SEE NOTE> GC/Chlamydia 10/01/2009 [facility] GC By Aptima NEGATIVE Negative 56 Dna Probe [phone] CHL By Aptima NEGATIVE Negative 57 CBC With 10/01/2009 [facility] White Blood 9.6 CUMM 4.8-10.8 Electronic Diff [phone] Count Stat Red Cell Count 4.36 CUMM 4.2-5.4 Hemoglobin 13.3 g/dL 12.0-16.0 Hematocrit 38 % 35-47 Mean Corpuscular Volume 87 um3 79-97 Mean Corpuscular Hemoglob 31 pg 27-31 Mean Corpuscular HGB Cone 35 g/dL 32-36 Redcell Distribution WDTH 13 % 10.5-15 Platelet Count 312 CUMM 150-450 Mean Platelet Volume 8.0 um3 7.4-10.4 Gran % 76.6 % 38-83 Lymph % 13.4 % Low 25-47 Mononuclear % 9.0 % 1-9 Eosinophil % 0.3 % 0-6 Basophil % 0.7 % 0-2 Abs Lymphs 1.3 1.0-4.8 Abs Mononuclear 0.9 High 0-0.8 Absolute Neutrophil Count 7.3 1.5-7.7 Abs Eosinophils 0 0-0.6 Abs Basophils 0.1 0-0.2 CMP Stat 10/01/2009 [facility] Sodium 149 mmol/L High 135-145 [phone] Potassium 3.9 mmol/L 3.5-5.0 Chloride 111 mmol/L 101-111 Co2 (Carbon Dioxide) 30.0 mmol/L 22-32 Anion Gap 8.0 mmol/L 2-11 58 Glucose 126 mg/dL High 70-100 59 BUN 6 mg/dL 6-24 Creatinine 0.70 mg/dL 0.50-1.40 One Over Creatinine 1.40 BUN/Creatinine Ratio 8.6 8-20 Calcium 9.5 mg/dL 8.1-9.9 60 Total Protein 6.4 GM/DL 6.2-8.1 Albumin 3.5 GM/DL Low 3.6-5.4 Globulin 2.9 GM/DL 2-4 Albumin/Globulin Ratio 1.2 1-3 Bilirubin Total 0.5 mg/dL 0.4-1.5 61 Alkaline Phosphatase 62 U/L 30-110 Alt (SGPT) 14 U/L 14-54 Ast (Sgot) 18 U/L 12-42 eGFR Non- 109.3 > 60 eGFR 132.2 > 60 62 Laboratory test 10/01/2009 [facility] Monospot NEGATIVE Negative finding [phone] Urinalysis 09/30/2009 [facility] Ua Color YELLOW Yellow [phone] Appearance-Urine CLEAR Clear Specific [place]-Ur 1.019 1.010-1.030 Esterase-Urine NEGATIVE Negative Nitrite NEGATIVE Negative Alqivexvzfyl-Ld-LTG NEGATIVE Negative Protein-Urine NEGATIVE Negative PH-Urine 7.0 5-9 Blood-Urine NEGATIVE Negative Ketones-Urine NEGATIVE Negative Bilirubin-Ur NEGATIVE Negative Glucose-Urine NEGATIVE Negative Laboratory test 08/27/2009 In House Lab Strep Screen POS Neg finding (607)- - CMP Stat 08/03/2009 [facility] Sodium 136 mmol/L 135-145 [phone] Potassium 3.7 mmol/L 3.5-5.0 Chloride 103 mmol/L 101-111 Co2 (Carbon Dioxide) 25.0 mmol/L 22-32 Anion Gap 8.0 mmol/L 2-11 63 Glucose 132 mg/dL High 70-100 64 BUN 11 mg/dL 6-24 Creatinine 0.80 mg/dL 0.50-1.40 One Over Creatinine 1.20 BUN/Creatinine Ratio 13.8 8-20 Calcium 8.9 mg/dL 8.1-9.9 65 Total Protein 7.1 GM/DL 6.2-8.1 Albumin 3.9 GM/DL 3.6-5.4 Globulin 3.2 GM/DL 2-4 Albumin/Globulin Ratio 1.2 1-3 Bilirubin Total 0.6 mg/dL 0.4-1.5 66 Alkaline Phosphatase 59 U/L 30-110 Alt (SGPT) 38 U/L 14-54 Ast (Sgot) 28 U/L 12-42 eGFR Non- 93.7 > 60 eGFR 113.3 > 60 67 CBC With 08/03/2009 [facility] White Blood 15.8 CUMM High 4.8-10.8 Manual Diff [phone] Count Red Cell Count 4.98 CUMM 4.2-5.4 Hemoglobin 14.5 g/dL 12.0-16.0 Hematocrit 44 % 35-47 Mean Corpuscular Volume 87 um3 79-97 Mean Corpuscular Hemoglob 29 pg 27-31 Mean Corpuscular HGB Cone 33 g/dL 32-36 Redcell Distribution WDTH 13 % 10.5-15 Platelet Count 390 CUMM 150-450 Mean Platelet Volume 8.8 um3 7.4-10.4 Polysegmented Neutrophil 81 % 38-83 Band Neutrophil 10 % High 0-8 Lymphocyte 5 % Low 25-47 Monocyte 4 % 0-13 Absolute Neutrophil Count 14.3 RBC Morphology NORMAL Laboratory test 07/14/2009 [facility] Urine Culture No growth. finding [phone] Urine DIP 07/14/2009 In House Lab Leukocytes + Neg (607)- - Urine Nitrites NEG Neg Urine pH 5 5-6 Total Protein, Urine NEG Neg Urine Glucose NORM Norm Urine Ketones NEG Neg Urobilinogen NORM Norm Urine Bilirubin NEG Neg Urine Blood ABOUT 250 Neg Specific [place] N/A Low 1.01-1.02 Urinalysis Stat 02/07/2009 [facility] Ua Color YELLOW [phone] Appearance-Urine CLOUDY Specific [place]-Ur 1.018 1.010-1.030 Esterase-Urine NEGATIVE Negative Nitrite NEGATIVE Negative Kcjvmptkruvx-Jn-HGT NEGATIVE Negative Protein-Urine TRACE Negative PH-Urine 6.0 5-9 Blood-Urine NEGATIVE Negative Ketones-Urine TRACE Negative Bilirubin-Ur NEGATIVE Negative Glucose-Urine NEGATIVE Negative GC/Chlamydia Dna 02/07/2009 [facility] GC By Aptima NEGATIVE Negative 68 Probe [phone] CHL By Aptima NEGATIVE Negative 69 Laboratory test 02/07/2009 [facility] Genital BETA STREP 70 finding [phone] Culture GROUP <SEE NOTE> CBC With 02/07/2009 [facility] White Blood 8.2 CUMM 4.8-10 Electronic Diff [phone] Count .8 Stat Red Cell Count 4.63 CUMM 4.2-5.4 Hemoglobin 13.8 g/dL 12.0-16.0 Hematocrit 41 % 35-47 Mean Corpuscular Volume 88 um3 79-97 Mean Corpuscular Hemoglob 30 pg 27-31 Mean Corpuscular HGB Cone 34 g/dL 32-36 Redcell Distribution WDTH 13 % 10.5-15 Platelet Count 311 CUMM 150-450 Mean Platelet Volume 8.2 um3 7.4-10.4 Gran % 51.3 % 38-83 Lymph % 39.5 % 25-47 Mononuclear % 6.3 % 1-9 Eosinophil % 1.9 % 0-6 Basophil % 1.0 % 0-2 Abs Lymphs 3.2 1.0-4.8 Abs Mononuclear 0.5 0-0.8 Absolute Neutrophil Count 4.2 1.5-7.7 Abs Eosinophils 0.2 0-0.6 Abs Basophils 0.1 0-0.2 CMP Stat 02/07/2009 [facility] Sodium 140 mmol/L 135-145 [phone] Potassium 3.7 mmol/L 3.5-5.0 Chloride 107 mmol/L 101-111 Co2 (Carbon Dioxide) 25.0 mmol/L 22-32 Anion Gap 8.0 mmol/L 2-11 71 Glucose 120 mg/dL High 70-100 72 BUN 14 mg/dL 6-24 Creatinine 0.70 mg/dL 0.50-1.40 One Over Creatinine 1.40 BUN/Creatinine Ratio 20.0 8-20 Calcium 9.3 mg/dL 8.1-9.9 73 Total Protein 6.6 GM/DL 6.2-8.1 Albumin 3.7 GM/DL 3.6-5.4 Globulin 2.9 GM/DL 2-4 Albumin/Globulin Ratio 1.3 1-3 Bilirubin Total 0.3 mg/dL Low 0.4-1.5 74 Alkaline Phosphatase 41 U/L 30-110 Alt (SGPT) 18 U/L 14-54 Ast (Sgot) 18 U/L 12-42 eGFR Non- 109.3 > 60 eGFR 132.2 > 60 75 Urinalysis Stat 02/07/2009 [facility] Ua Color YELLOW [phone] Appearance-Urine CLEAR Specific [place]-Ur 1.002 Low 1.010-1.030 Esterase-Urine NEGATIVE Negative Nitrite NEGATIVE Negative Hqxlbdtxhvpb-Fb-MUB NEGATIVE Negative Protein-Urine NEGATIVE Negative PH-Urine 6.0 5-9 Blood-Urine NEGATIVE Negative Ketones-Urine NEGATIVE Negative Bilirubin-Ur NEGATIVE Negative Glucose-Urine NEGATIVE Negative Up 02/07/2009 [facility] Specific [place] 1.002 Low 1.010-1.030 [phone] Urine NEGATIVE Negative 76 Urinalysis W/Microscopic 02/07/2009 [facility] Ua Color YELLOW [phone] Appearance-Urine CLEAR Specific [place]-Ur 1.002 Low 1.010-1.030 Esterase-Urine NEGATIVE Negative Nitrite NEGATIVE Negative Xpxhiimkioqt-Ny-WKT NEGATIVE Negative Protein-Urine NEGATIVE Negative PH-Urine 6.0 5-9 Blood-Urine NEGATIVE Negative Ketones-Urine NEGATIVE Negative Bilirubin-Ur NEGATIVE Negative Glucose-Urine NEGATIVE Negative WBC-Urine 0-2 0-5 RBC-Urine 0-2 0-2 Mucus Urine SMALL Epith Cells-Ur FEW Urinalysis Stat 02/04/2009 [facility] Ua Color YELLOW [phone] Appearance-Urine CLEAR Specific [place]-Ur 1.010 1.010-1.030 Esterase-Urine TRACE Negative Nitrite NEGATIVE Negative Matpsjqizlws-Im-LIV NEGATIVE Negative Protein-Urine NEGATIVE Negative PH-Urine 6.5 5-9 Blood-Urine NEGATIVE Negative Ketones-Urine NEGATIVE Negative Bilirubin-Ur NEGATIVE Negative Glucose-Urine NEGATIVE Negative Urinalysis W/Microscopic 02/04/2009 [facility] Ua Color YELLOW [phone] Appearance-Urine CLEAR Specific [place]-Ur 1.010 1.010-1.030 Esterase-Urine TRACE Negative Nitrite NEGATIVE Negative Juqpukymvetj-Ye-NED NEGATIVE Negative Protein-Urine NEGATIVE Negative PH-Urine 6.5 5-9 Blood-Urine NEGATIVE Negative Ketones-Urine NEGATIVE Negative Bilirubin-Ur NEGATIVE Negative Glucose-Urine NEGATIVE Negative WBC-Urine 2-10 0-5 RBC-Urine NONE SEEN 0-2 Epith Cells-Ur MODERATE Bacteria-Urine 3+ Urinalysis Stat 01/27/2009 [facility] [facility] Ua Color YELLOW [phone] Appearance-Urine CLOUDY Specific [place]-Ur 1.015 1.010-1.030 Esterase-Urine NEGATIVE Negative Nitrite NEGATIVE Negative Eaabxwodxejk-Qc-IVQ NEGATIVE Negative Protein-Urine NEGATIVE Negative PH-Urine 7.5 5-9 Blood-Urine NEGATIVE Negative Ketones-Urine NEGATIVE Negative Bilirubin-Ur NEGATIVE Negative Glucose-Urine NEGATIVE Negative CBC With 01/27/2009 [facility] White Blood 6.8 CUMM 4.8-10.8 Electronic Diff [phone] Count Stat Red Cell Count 4.44 CUMM 4.2-5.4 Hemoglobin 13.5 g/dL 12.0-16.0 Hematocrit 39 % 35-47 Mean Corpuscular Volume 88 um3 79-97 Mean Corpuscular Hemoglob 30 pg 27-31 Mean Corpuscular HGB Cone 35 g/dL 32-36 Redcell Distribution WDTH 13 % 10.5-15 Platelet Count 359 CUMM 150-450 Mean Platelet Volume 8.4 um3 7.4-10.4 Gran % 45.4 % 38-83 Lymph % 43.6 % 25-47 Mononuclear % 7.8 % 1-9 Eosinophil % 2.4 % 0-6 Basophil % 0.8 % 0-2 Abs Lymphs 3.0 1.0-4.8 Abs Mononuclear 0.5 0-0.8 Absolute Neutrophil Count 3.1 1.5-7.7 Abs Eosinophils 0.2 0-0.6 Abs Basophils 0.1 0-0.2 CMP Stat 01/27/2009 [facility] Sodium 139 mmol/L 135-145 [phone] Potassium 4.3 mmol/L 3.5-5.0 Chloride 105 mmol/L 101-111 Co2 (Carbon Dioxide) 29.0 mmol/L 22-32 Anion Gap 5.0 mmol/L 2-11 77 Glucose 93 mg/dL 70-100 78 BUN 13 mg/dL 6-24 Creatinine 0.90 mg/dL 0.50-1.40 One Over Creatinine 1.10 BUN/Creatinine Ratio 14.4 8-20 Calcium 9.2 mg/dL 8.1-9.9 79 Total Protein 6.0 GM/DL Low 6.2-8.1 Albumin 3.7 GM/DL 3.6-5.4 Globulin 2.3 GM/DL 2-4 Albumin/Globulin Ratio 1.6 1-3 Bilirubin Total 0.4 mg/dL 0.4-1.5 80 Alkaline Phosphatase 49 U/L 30-110 Alt (SGPT) 14 U/L 14-54 Ast (Sgot) 16 U/L 12-42 eGFR Non- 81.8 > 60 eGFR 98.9 > 60 81 Urine DIP 11/11/2008 In House Lab Leukocytes NEG Neg (607)- - Urine Nitrites NEG Neg Urine pH 5 5-6 Total Protein, Urine NEG Neg Urine Glucose NORM Norm Urine Ketones NEG Neg Urobilinogen NORM Norm Urine Bilirubin NEG Neg Urine Blood NEG Neg Specific [place] NORM Low 1.01-1.02 Urinalysis 08/04/2008 [facility] Ua Color YELLOW [phone] Appearance-Urine CLOUDY Specific [place]-Ur 1.028 1.010-1.030 Esterase-Urine NEGATIVE Negative Nitrite NEGATIVE Negative Hteiobxiizha-Qh-IZO NEGATIVE Negative Protein-Urine NEGATIVE Negative PH-Urine 6.5 5-9 Blood-Urine NEGATIVE Negative Ketones-Urine NEGATIVE Negative Bilirubin-Ur NEGATIVE Negative Glucose-Urine NEGATIVE Negative Comp Metabolic Panel 08/04/2008 [facility] Sodium 141 mmol/L 135-145 [phone] Potassium 3.8 mmol/L 3.5-5.0 Chloride 108 mmol/L 101-111 Co2 (Carbon Dioxide) 29.0 mmol/L 22-32 Anion Gap 4.0 mmol/L 2-11 82 Glucose 103 mg/dL High 70-100 83 BUN 11 mg/dL 6-24 Creatinine 0.70 mg/dL 0.50-1.40 One Over Creatinine 1.40 BUN/Creatinine Ratio 15.7 8-20 Calcium 9.3 mg/dL 8.1-9.9 84 Total Protein 6.5 GM/DL 6.2-8.1 Albumin 3.9 GM/DL 3.6-5.4 Globulin 2.6 GM/DL 2-4 Albumin/Globulin Ratio 1.5 1-3 Bilirubin Total 0.4 mg/dL 0.4-1.5 Alkaline Phosphatase 61 U/L 30-110 Alt (SGPT) 13 U/L Low 14-54 Ast (Sgot) 17 U/L 12-42 CBC With Manual 08/04/2008 [facility] White Blood 6.9 CUMM 4.8-10.8 Diff Stat [phone] Count Red Cell Count 4.64 CUMM 4.2-5.4 Hemoglobin 13.5 g/dL 12.0-16.0 Hematocrit 40 % 35-47 Mean Corpuscular Volume 85 um3 79-97 Mean Corpuscular Hemoglob 29 pg 27-31 Mean Corpuscular HGB Cone 34 g/dL 32-36 Redcell Distribution WDTH 12 % 10.5-15 Platelet Count 397 CUMM 150-450 Mean Platelet Volume 8.1 um3 7.4-10.4 Polysegmented Neutrophil 49 % 38-83 Lymphocyte 30 % 25-47 Monocyte 2 % 0-13 Eosenophil 4 % 0-6 Atypical Lymph 15 % High 0-6 85 Absolute Neutrophil Count 3.3 RBC Morphology NORMAL Manual Diff Comments (SEE NOTE) 86 Laboratory test 08/04/2008 [facility] Monospot NEGATIVE Negative finding [phone] (HCG) Serum NEGATIVE Negative 87 Urinalysis W/Microscopic 08/04/2008 [facility] Ua Color YELLOW [phone] Appearance-Urine CLOUDY Specific [place]-Ur 1.028 1.010-1.030 Esterase-Urine NEGATIVE Negative Nitrite NEGATIVE Negative Ttgksybsngpx-Dx-YIM NEGATIVE Negative Protein-Urine NEGATIVE Negative PH-Urine 6.5 5-9 Blood-Urine NEGATIVE Negative Ketones-Urine NEGATIVE Negative Bilirubin-Ur NEGATIVE Negative Glucose-Urine NEGATIVE Negative RBC-Urine NONE SEEN 0-2 Mucus Urine MODERATE Epith Cells-Ur MODERATE Laboratory test 07/25/2008 [facility] NEGATIVE Negative 88 finding [phone] (HCG) Serum CBC With 07/25/2008 [facility] White Blood 7.7 CUMM 4.8-10.8 Electronic Diff [phone] Count Stat Red Cell Count 4.62 CUMM 4.2-5.4 Hemoglobin 13.6 g/dL 12.0-16.0 Hematocrit 39 % 35-47 Mean Corpuscular Volume 85 um3 79-97 Mean Corpuscular Hemoglob 29 pg 27-31 Mean Corpuscular HGB Cone 35 g/dL 32-36 Redcell Distribution WDTH 12 % 10.5-15 Platelet Count 422 CUMM 150-450 Mean Platelet Volume 7.9 um3 7.4-10.4 Gran % 45.1 % 38-83 Lymph % 45.5 % 25-47 Mononuclear % 6.2 % 1-9 Eosinophil % 2.5 % 0-6 Basophil % 0.7 % 0-2 Abs Lymphs 3.4 1.0-4.8 Abs Mononuclear 0.5 0-0.8 Absolute Neutrophil Count 3.5 1.5-7.7 Abs Eosinophils 0.2 0-0.6 Abs Basophils 0.1 0-0.2 Urinalysis 07/25/2008 [facility] Ua Color YELLOW [phone] Appearance-Urine CLEAR Specific [place]-Ur 1.035 High 1.010-1.030 Esterase-Urine NEGATIVE Negative Nitrite NEGATIVE Negative Shomhpqeednj-Uz-BWK NEGATIVE Negative Protein-Urine TRACE Negative PH-Urine 6.0 5-9 Blood-Urine NEGATIVE Negative Ketones-Urine NEGATIVE Negative Ictotest-Urine NEGATIVE (NEG) Glucose-Urine NEGATIVE Negative Comp Metabolic 07/25/2008 [facility] Sodium 133 mmol/ L Low 135-145 Panel [phone] Potassium 3.5 mmol/L 3.5-5.0 Chloride 100 mmol/L Low 101-111 Co2 (Carbon Dioxide) 26.0 mmol/L 22-32 Anion Gap 7.0 mmol/L 2-11 89 Glucose 98 mg/dL 70-100 90 BUN 14 mg/dL 6-24 Creatinine 0.60 mg/dL 0.50-1.40 One Over Creatinine 1.60 BUN/Creatinine Ratio 23.3 High 8-20 Calcium 8.7 mg/dL 8.1-9.9 91 Total Protein 6.5 GM/DL 6.2-8.1 Albumin 3.8 GM/DL 3.6-5.4 Globulin 2.7 GM/DL 2-4 Albumin/Globulin Ratio 1.4 1-3 Bilirubin Total 0.6 mg/dL 0.4-1.5 Alkaline Phosphatase 62 U/L 30-110 Alt (SGPT) 14 U/L 14-54 Ast (Sgot) 19 U/L 12-42 Laboratory test 07/25/2008 [facility] Amylase 56 U/L 30-125 finding [phone] Lipase 22 U/L 22-51 Laboratory test 03/28/2008 [facility] Magnesium 2.1 mg/dL 1.7-2.6 finding [phone] TSH 1.44 MIU/ML 0.34-5.60 Electrolytes 03/28/2008 [facility] Sodium 139 mmol/L 135-145 [phone] Potassium 4.1 mmol/L 3.5-5.0 Chloride 106 mmol/L 101-111 Co2 (Carbon Dioxide) 29.0 mmol/L 22-32 Anion Gap 4.0 mmol/L 2-11 92 CBC With Manual 03/28/2008 [facility] White Blood 5.5 CUMM 4.8-10.8 Diff [phone] Count Red Cell Count 4.27 CUMM 4.2-5.4 Hemoglobin 12.8 g/dL 12.0-16.0 Hematocrit 37 % 35-47 Mean Corpuscular Volume 86 um3 79-97 Mean Corpuscular Hemoglob 30 pg 27-31 Mean Corpuscular HGB Cone 35 g/dL 32-36 Redcell Distribution WDTH 14 % 10.5-15 Platelet Count 352 CUMM 150-450 Mean Platelet Volume 8.4 um3 7.4-10.4 Polysegmented Neutrophil 47 % 38-83 Lymphocyte 42 % 5-47 Monocyte 4 % 0-13 Eosenophil 6 % 0-6 Basophil 1 % 0-2 Absolute Neutrophil Count 2.5 Anisocytosis SLIGHT Urine Culture And 01/07/2008 [facility] Urine Culture NG 93 Sensitivites [phone] Sensitivi Urinalysis 12/22/2007 [facility] Ua Color YELLOW W/Microscopic [phone] Appearance-Urine CLEAR Specific [place]-Ur 1.010 1.010-1.030 Esterase-Urine TRACE Negative Nitrite NEGATIVE Negative Mnoitorxruyz-Yt-JIB NEGATIVE Negative Protein-Urine NEGATIVE Negative PH-Urine 7.0 5-9 Blood-Urine NEGATIVE Negative Ketones-Urine NEGATIVE Negative Bilirubin-Ur NEGATIVE Negative Glucose-Urine NEGATIVE Negative WBC-Urine 3-5 0-5 RBC-Urine 0-2 0-2 Mucus Urine MODERATE Epith Cells-Ur MODERATE Urinalysis W/Microscopic 11/22/2007 [facility] Ua Color STRAW [phone] Appearance-Urine CLEAR Specific [place] 1.006 Low 1.010-1.030 Esterase-Urine TRACE Negative Nitrite NEGATIVE Negative Rhdpzdgdkjir-Hw-OQW NEGATIVE Negative Protein-Urine NEGATIVE Negative PH-Urine 6.5 5-9 Blood-Urine NEGATIVE Negative Ketones-Urine NEGATIVE Negative Bilirubin-Ur NEGATIVE Negative Glucose-Urine NEGATIVE Negative WBC-Urine 4-8 0-5 RBC-Urine RARE 0-2 Mucus Urine MODERATE Epith Cells-Ur MANY Bacteria-Urine FEW Amorphous Sed-U FEW Urinalysis W/Microscopic 07/30/2007 [facility] Ua Color YELLOW [phone] Ictotest-Urine NEGATIVE (NEG) Appearance-Urine CLEAR Bacteria-Urine 1+ Blood-Urine NEGATIVE Negative Epith Cells-Ur MANY Esterase-Urine TRACE Negative Glucose-Urine NEGATIVE Negative Ketones-Urine 3+ Negative Mucus Urine SMALL Nitrite NEGATIVE Negative PH-Urine 6.0 5-9 Protein-Urine 1+ Negative RBC-Urine 0-2 0-2 Pypijcrgsarx-Gh-ENN NEGATIVE Negative Specific [place] 1.030 1.010-1.030 WBC-Urine 3-5 0-5 Basic Metabolic 07/30/2007 [facility] One Over Creatinine 1.66 Panel Stat [phone] Anion Gap 8.0 mmol/L 2-11 94 BUN 9 mg/dL 6-24 Calcium 8.8 mg/dL 8.7-10.2 Chloride 106 mmol/L 101-111 Co2 (Carbon Dioxide) 21.0 mmol/L Low 22-32 Glucose 117 mg/dL High 70-105 Potassium 3.2 mmol/L Low 3.5-5.0 Sodium 135 mmol/L 135-145 BUN/Creatinine Ratio 15.0 8-20 Creatinine 0.6 mg/dL 0.5-1.4 CBC With 07/30/2007 [facility] White Blood 9.1 CUMM 4.8-10.8 Electronic Diff [phone] Count Stat Abs Basophils 0 0-0.2 Abs Eosinophils 0 0-0.6 Absolute Neutrophil Count 8.0 High 1.5-7.7 Abs Lymphs 0.8 Low 1.0-4.8 Abs Mononuclear 0.3 0-0.8 Basophil % 0.2 % 0-2 Hematocrit 38 % 35-47 Hemoglobin 13.3 g/dL 12.0-16.0 Eosinophil % 0.2 % 0-6 Gran % 87.3 % High 38-83 Lymph % 8.5 % Low 20-45 Mean Corpuscular HGB Cone 35 g/dL 32-36 Mean Corpuscular Hemoglob 31 pg 27-31 Mean Corpuscular Volume 88 um3 79-97 Mean Platelet Volume 8.3 um3 7.4-10.4 Mononuclear % 3.8 % 1-9 Platelet Count 360 CUMM 150-450 Red Cell Count 4.31 CUMM 4.2-5.4 Redcell Distribution WDTH 13 % 10.5-15 CMP Stat 07/06/2007 [facility] One Over Creatinine 1.66 [phone] Anion Gap 7.0 mmol/L 2-11 95 Albumin/Globulin Ratio 1.2 1-3 Albumin 3.3 GM/DL Low 3.6-5.4 Alkaline Phosphatase 45 U/L 30-110 Alt (SGPT) 11 U/L Low 14-54 Ast (Sgot) 19 U/L 12-42 BUN 8 mg/dL 6-24 Calcium 8.9 mg/dL 8.7-10.2 Chloride 104 mmol/L 101-111 Co2 (Carbon Dioxide) 24.0 mmol/L 22-32 Globulin 2.8 GM/DL 2-4 Glucose 86 mg/dL 70-105 Potassium 3.4 mmol/L Low 3.5-5.0 Sodium 135 mmol/L 135-145 Bilirubin Total 0.6 mg/dL 0.4-1.5 Total Protein 6.1 GM/DL Low 6.2-8.1 BUN/Creatinine Ratio 13.3 8-20 Creatinine 0.6 mg/dL 0.5-1.4 Laboratory test 07/06/2007 [facility] [address]119.0 High 0-5 96 finding [phone] Quantitative MIU/ML Urinalysis Stat 07/06/2007 [facility] Ua Color YELLOW [phone] Appearance-Urine CLEAR Bilirubin-Ur NEGATIVE Negative Blood-Urine NEGATIVE Negative Esterase-Urine NEGATIVE Negative Glucose-Urine NEGATIVE Negative Ketones-Urine NEGATIVE Negative Nitrite NEGATIVE Negative PH-Urine 5.0 5-9 Protein-Urine NEGATIVE Negative Qaexqhsdzgqc-Ea-WPK NEGATIVE Negative Specific [place] 1.025 1.010-1.030 CBC With 07/06/2007 [facility] White Blood 9.6 CUMM 4.8-10.8 Electronic Diff [phone] Count Stat Abs Basophils 0 0-0.2 Abs Eosinophils 0.1 0-0.6 Absolute Neutrophil Count 6.3 1.5-7.7 Abs Lymphs 2.7 1.0-4.8 Abs Mononuclear 0.5 0-0.8 Basophil % 0.3 % 0-2 Hematocrit 38 % 35-47 Hemoglobin 13.3 g/dL 12.0-16.0 Eosinophil % 1.4 % 0-6 Gran % 65.2 % 38-83 Lymph % 28.0 % 20-45 Mean Corpuscular HGB Cone 35 g/dL 32-36 Mean Corpuscular Hemoglob 30 pg 27-31 Mean Corpuscular Volume 86 um3 79-97 Mean Platelet Volume 7.9 um3 7.4-10.4 Mononuclear % 5.1 % 1-9 Platelet Count 386 CUMM 150-450 Red Cell Count 4.47 CUMM 4.2-5.4 Redcell Distribution WDTH 13 % 10.5-15 Urinalysis W/Microscopic 06/29/2007 [facility] Ua Color STRAW [phone] Appearance-Urine CLEAR Bilirubin-Ur NEGATIVE Negative Blood-Urine NEGATIVE Negative Epith Cells-Ur FEW Esterase-Urine TRACE Negative Glucose-Urine NEGATIVE Negative Ketones-Urine 1+ Negative Nitrite NEGATIVE Negative PH-Urine 7.0 5-9 Protein-Urine NEGATIVE Negative RBC-Urine 0-2 0-2 Jspuxasewfkv-Tc-ZLG NEGATIVE Negative Specific [place] 1.005 Low 1.010-1.030 WBC-Urine 1-2 0-5 CBC With 06/29/2007 [facility] White Blood 6.9 CUMM 4.8-10.8 Electronic Diff [phone] Count Abs Basophils 0 0-0.2 Abs Eosinophils 0.1 0-0.6 Absolute Neutrophil Count 4.7 1.5-7.7 Abs Lymphs 1.7 1.0-4.8 Abs Mononuclear 0.4 0-0.8 Basophil % 0.5 % 0-2 Hematocrit 42 % 35-47 Hemoglobin 13.8 g/dL 12.0-16.0 Eosinophil % 0.9 % 0-6 Gran % 68.9 % 38-83 Lymph % 24.4 % 20-45 Mean Corpuscular HGB Cone 33 g/dL 32-36 Mean Corpuscular Hemoglob 29 pg 27-31 Mean Corpuscular Volume 86 um3 79-97 Mean Platelet Volume 7.8 um3 7.4-10.4 Mononuclear % 5.3 % 1-9 Platelet Count 397 CUMM 150-450 Red Cell Count 4.82 CUMM 4.2-5.4 Redcell Distribution WDTH 14 % 10.5-15 Laboratory test 05/22/2007 In House Lab Test, POSTIVE finding (607)- - Urine CBC With 04/03/2007 [facility] White Blood Count 6.4 CUMM 4.8-10.8 Electronic Diff [phone] Abs Basophils 0 0-0.2 Abs Eosinophils 0.2 0-0.6 Absolute Neutrophil Count 3.6 1.5-7.7 Abs Lymphs 2.3 1.0-4.8 Abs Mononuclear 0.4 0-0.8 Basophil % 0.6 % 0-2 Hematocrit 41 % 35-47 Hemoglobin 13.9 g/dL 12.0-16.0 Eosinophil % 2.8 % 0-6 Gran % 55.1 % 38-83 Lymph % 35.2 % 20-45 Mean Corpuscular HGB Cone 34 g/dL 32-36 Mean Corpuscular Hemoglob 30 pg 27-31 Mean Corpuscular Volume 88 um3 79-97 Mean Platelet Volume 9.2 um3 7.4-10.4 Mononuclear % 6.3 % 1-9 Platelet Count 406 CUMM 150-450 Red Cell Count 4.67 CUMM 4.2-5.4 Redcell Distribution WDTH 13 % 10.5-15 Urine Culture And 12/10/2005 [facility] Urine Culture SPECIMEN 97 Sensitivites [phone] Sensitivi CONTAIN <SEE NOTE> Urinalysis 12/10/2005 [facility] Ua Color STRAW W/Microscopic [phone] Appearance-Urine HAZY Bacteria-Urine TRACE Bilirubin-Ur NEGATIVE Negative Blood-Urine NEGATIVE Negative Epith Cells-Ur FEW Esterase-Urine TRACE Negative Glucose-Urine NEGATIVE Negative Ketones-Urine NEGATIVE Negative Mucus Urine SMALL Nitrite NEGATIVE Negative PH-Urine 7.0 5-9 Protein-Urine NEGATIVE Negative RBC-Urine 0-2 0-2 Lvfmkugptsbi-Sj-WFE NEGATIVE Negative Specific [place]Ur 1.004 Low 1.010-1.030 WBC-Urine 0-2 0-5 Urinalysis Stat 12/10/2005 [facility] Ua Color STRAW [phone] Appearance-Urine HAZY Bilirubin-Ur NEGATIVE Negative Blood-Urine NEGATIVE Negative Esterase-Urine TRACE Negative Glucose-Urine NEGATIVE Negative Ketones-Urine NEGATIVE Negative Nitrite NEGATIVE Negative PH-Urine 7.0 5-9 Protein-Urine NEGATIVE Negative Kcknlqcratzo-Hx-GDS NEGATIVE Negative Specific [place] 1.004 Low 1.010-1.030 Urine DIP 10/21/2004 In House Lab Leukocytes NEG Neg (607)- - Urine Nitrites NEG Neg Urine pH 5 5-6 Total Protein, Urine NL Neg Urine Glucose NL Norm Urine Ketones NL Neg Urobolinogen NL Norm Urine Bilirubin NL Neg Urine Blood NL Neg Specific [place] N/A Low 1.01-1.02 1 ADDITIONAL INFORMATION Testing performed by [facility]. This test was developed and its performance characteristics determined by [facility] in a manner consistent with CLIA requirements. This test has not been cleared or approved by the U.S. Food and Drug Administration. 2 ADDITIONAL INFORMATION Testing performed by Liquid Chromatography-Tandem Mass Spectrometry (LC-MS/MS). This test was developed and its performance characteristics determined by [facility] in a manner consistent with CLIA requirements. This test has not been cleared or approved by the U.S. Food and Drug Administration. Test Performed by: [facility] [employer] [facility] [employer] [address] [place] [id number] 3 REFERENCE VALUE Premenopausal :17-200 Postmenopausal : 7-40 ADDITIONAL INFORMATION This test was developed and its performance characteristics determined by [facility] in a manner consistent with CLIA requirements. This test has not been cleared or approved by the U.S. Food and Drug Administration. 4 REFERENCE VALUE Premenopausal: 15-350 (E2 levels vary widely through the menstrual cycle.) Postmenopausal: <10 ADDITIONAL INFORMATION This test was developed and its performance characteristics determined by [facility] in a manner consistent with CLIA requirements. This test has not been cleared or approved by the U.S. Food and Drug Administration. Test Performed by: [facility] [employer] - [address] [address] 5 Because ethnic data is not always readily available, this report includes an eGFR for both -Americans and non- Americans. The National Kidney Disease Education Program (NKDEP) does not endorse the use of the MDRD equation for patients that are not between the ages of 18 and 70, are , have extremes of body size, muscle mass, or nutritional status, or are non- or non-. According to the National Kidney Foundation, irrespective of diagnosis, the stage of the disease is based on the level of kidney function: Stage Description GFR(mL/min/1.73 m(2)) 1 Kidney damage with normal or decreased GFR 90 2 Kidney damage with mild decrease in GFR 60-89 3 Moderate decrease in GFR 30-59 4 Severe decrease in GFR 15-29 5 Kidney failure <15 (or dialysis) 6 Normally menstruating females - Follicular phase 3 - 9 - Mid-cycle peak 4 - 23 - Luteal phase 1 - 6 Postmenopausal females 16 - 114 7 Normally menstruating females - Follicular Phase 1 - 18 - Mid-Cycle Peak 24 - 105 - Luteal Phase 0.6 - 20 Postmenopausal females 15 - 62 8 [id number] SEE RESULT BELOW Name: NILDA ULRICH : [address]: Ronen Degroot MD Acct: [id number] Unit: [id number] AGE: 31 Location: [facility] Re10/02/17 SEX: F Status: REG REF SPEC: [id number] SARAH: 10/02/17-1430 [facility] DR: Ronen Degroot MD REQ: [id number] RECD: 10/02/17-170 STATUS: YARIEL CHO DR: Gianfranco Barnhart MD _ ORDERED: TP IMAGE ANAL, HPV/Thin Prep, HPV 16/18 GENE COMMENTS: [id number] Negative for Intraepithelial lesion or Malignancy A. Ectocervical/Endocervical Specimen Adequacy: Satisfactory of evaluation Transformation zone component identified Patient Information: HPV: High risk HPV RNA testing regardless of pap results. HPV 16/18 Genotype Reflex Actual Specimen Date: 10/02/17 Last Menstrual Date: 09/19/17 ?: N Post Menopausal?: N Hysterectomy?: N Previous Abnormal Pap Smears?:Y If Yes, enter Diagnosis: 2011 Low grade squamous intraepithelial lesion. Date Time Test Result Flag (u) Normal Range 10/02/17 1430 @ HPV RNA RFLX GE Negative Negative @ @ The high-risk HPV types detected by the assay include: 16, @ 18, 31, 33, 35, 39, 45, 51, 52, 56, 58, 59, 66, and 68. Signed (signature on file) JOHN Winters (ASCP) 10/03 1310 This Pap test was evaluated with the assistance of the ThinPrep Test Imaging System. Due to cytologic findings at the lap layer microscope, comprehensive manual rescreening by a Lodging Facilities Manager may be required. The Pap Smear is a screening test designed to aid in the detection of premalignant and malignant conditions of the uterine cervix. It is not a diagnostic procedure and should not be used as the sole means of detecting cervical cancer. Both false- positive and false- negative reports do occur. Depending on your risk status, a Pap smear should be obtained and evaluated every 1-3 years. END OF REPORT DEPARTMENT OF PATHOLOGY, [address] [place] [address] Herbie Cuevas M.D. Director [facility] # [id number] 10 Because ethnic data is not always readily available, this report includes an eGFR for both -Americans and non- Americans. The National Kidney Disease Education Program (NKDEP) does not endorse the use of the MDRD equation for patients that are not between the ages of 18 and 70, are , have extremes of body size, muscle mass, or nutritional status, or are non- or non-. According to the National Kidney Foundation, irrespective of diagnosis, the stage of the disease is based on the level of kidney function: Stage Description GFR(mL/min/1.73 m(2)) 1 Kidney damage with normal or decreased GFR 90 2 Kidney damage with mild decrease in GFR 60-89 3 Moderate decrease in GFR 30-59 4 Severe decrease in GFR 15-29 5 Kidney failure <15 (or dialysis) 11 [id number] 14 Because ethnic data is not always readily available, this report includes an eGFR for both -Americans and non- Americans. The National Kidney Disease Education Program (NKDEP) does not endorse the use of the MDRD equation for patients that are not between the ages of 18 and 70, are , have extremes of body size, muscle mass, or nutritional status, or are non- or non-. According to the National Kidney Foundation, irrespective of diagnosis, the stage of the disease is based on the level of kidney function: Stage Description GFR(mL/min/1.73 m(2)) 1 Kidney damage with normal or decreased GFR 90 2 Kidney damage with mild decrease in GFR 60-89 3 Moderate decrease in GFR 30-59 4 Severe decrease in GFR 15-29 5 Kidney failure <15 (or dialysis) 15 SEE RESULT BELOW Name: BETTINANILDA A : [address]: Dulce Molina NP Acct: [id number] Unit: [id number] AGE: 31 Location: [facility] Re11/22/16 SEX: F Status: REG REF SPEC: [id number] SARAH: 11/22/16-1746 [facility] DR: Dulce Molina NP REQ: [id number] RECD: 11/23/16 STATUS: COMP _ SOURCE: [facility]: ORDERED: Caesar Mccollum COMMENTS: [id number] Procedure Result Reported Site Gardnerella/Yeast: Vaginal DNA Final 11/24/16- 1124 ML Organism 1 Negative Gardnerella Organism 2 Negative Saray The presence of G. vaginalis, although suggestive, is not diagnostic for bacterial vaginosis. Results should be interpreted in conjuction with other clinical and laboratory data available. Women with vaginal discharge should be evaluated for risk factors of cervicitis and pelvic inflammatory disease, toxic shock syndrome (S.aureus), and if present, evaluated for organisms not included in this assay such as N. gonorrhoeae, C. trachomatis, Mobiluncus, Mycoplasma and/or Prevotella. Mixed infections may occur. The performance of this test on patient specimens collected during or immediately after antimicrobial therapy is unknown. The presence or absence of Saray species, or G. vaginalis cannot be used as a test for therapeutic success or failure. * ML - MAIN LAB ([facility]) . END OF REPORT * ML=Testing performed at Main Lab DEPARTMENT OF PATHOLOGY, [address] [place] [address] Herbie Cuevas M.D. Director [facility] # [id number] 16 [id number] GC/Chlamydia Source?: Endocervical Trichomonas Source: Endocervical 17 Therapeutic target for the treatment of diabetes Mellitus patients is <7% HBA1C, and in selective patients <6.0%.Please refer to [place] [employer] Diabetic care guidelines for further information. 18 Because ethnic data is not always readily available, this report includes an eGFR for both -Americans and non- Americans. The National Kidney Disease Education Program (NKDEP) does not endorse the use of the MDRD equation for patients that are not between the ages of 18 and 70, are , have extremes of body size, muscle mass, or nutritional status, or are non- or non-. According to the National Kidney Foundation, irrespective of diagnosis, the stage of the disease is based on the level of kidney function: Stage Description GFR(mL/min/1.73 m(2)) 1 Kidney damage with normal or decreased GFR 90 2 Kidney damage with mild decrease in GFR 60-89 3 Moderate decrease in GFR 30-59 4 Severe decrease in GFR 15-29 5 Kidney failure <15 (or dialysis) 19 Desirable <150 Borderline high 150-199 High 200-499 Very High >500 20 Desirable <200 Borderline high 200-239 High >239 21 Low <40 Desirable: 40-60 High: >60 22 Desirable: <100 mg/dL Near Optimal: 100-129 mg/dL Borderline High: 130-159 mg/dL High: 160-189 mg/dL Very High: >189 mg/dL 23 [id number] 25 <5.0 Negative 5.0 - 25.0 Indeterminate (Repeat testing recommended after 72 hours) >25.0 Positive Perimenopausal women can display HCG levels of up to 20 mIU/mL 26 [facility] [id number] 27 The high-risk HPV types detected by the assay include: 16, 18, 31, 33, 35, 39, 45, 51, 52, 56, 58, 59, 66, and 68. 28 SEE RESULT BELOW Name: NILDA ULRICH : [address]: Ronen Degroot MD Acct: [id number] Unit: [id number] AGE: 30 Location: [facility] Re12/14/15 SEX: F Status: REG REF SPEC: [id number] SARAH: 12/14/15-[address]: Ronen Degroot MD REQ: [id number] RECD: 12/14/15 STATUS: YARIEL CHO DR: Gianfranco Barnhart MD _ ORDERED: IMAGE ANALYSIS, HPV/Thin Prep, HPV 16/18 GENE COMMENTS: [id number] FINAL DIAGNOSIS Negative for Intraepithelial lesion or Malignancy A. Ectocervical/Endocervical Specimen Adequacy: Satisfactory of evaluation Transformation zone component identified Patient Information: HPV: High risk HPV RNA testing regardless of pap results. HPV 16/18 Genotype Reflex Actual Specimen Date: 12/14/15 LMP If Unknown: Last Menstrual Period Not Given. ?: N Post Menopausal?: N Hysterectomy?: N Previous Abnormal Pap Smears?:Y If Yes, enter Diagnosis: 2012 LISL Colposcopy Date Time Test Result Flag (u) Normal Range 12/14/15 1500 HPV RNA RFLX GE Negative Negative The high-risk HPV types detected by the assay include: 16, 18, 31, 33, 35, 39, 45, 51, 52, 56, 58, 59, 66, and 68. Signed JOHN Winters (ASC) 12/15 0902 This Pap test was evaluated with the assistance of the [employer] Test Imaging System. Due to cytologic findings at the lap layer microscope, comprehensive manual rescreening by a Lodging Facilities Manager may be required. The Pap Smear is a screening test designed to aid in the detection of premalignant and malignant conditions of the uterine cervix. It is not a diagnostic procedure and should not be used as the sole means of detecting cervical cancer. Both false- positive and false- negative reports do occur. Depending on your risk status, a Pap smear should be obtained and evaluated every 1-3 years. END OF REPORT * ML=Testing performed at Main Lab DEPARTMENT OF PATHOLOGY, [address] [place] [id number] RUN DATE: 12/16/15 [facility] LAB LIVE PAGE 1 Patient: JDLinoNILDA [id number] (Continued) Herbie Cuevas M.D. Director [facility] # [id number] 29 Normal Range 180 to 914 Indeterminate Range 145 to 180 Deficient Range <145 30 Because ethnic data is not always readily available, this report includes an eGFR for both -Americans and non- Americans. The National Kidney Disease Education Program (NKDEP) does not endorse the use of the MDRD equation for patients that are not between the ages of 18 and 70, are , have extremes of body size, muscle mass, or nutritional status, or are non- or non-. According to the National Kidney Foundation, irrespective of diagnosis, the stage of the disease is based on the level of kidney function: Stage Description GFR(mL/min/1.73 m(2)) 1 Kidney damage with normal or decreased GFR 90 2 Kidney damage with mild decrease in GFR 60-89 3 Moderate decrease in GFR 30-59 4 Severe decrease in GFR 15-29 5 Kidney failure <15 (or dialysis) 31 Interpretation: 10-19 ng/mL (mild to moderate deficiency) REFERENCE VALUE 25-HYDROXY D TOTAL (D2+D3) Optimum levels in the healthy population are 20-50, patients with bone disease may benefit from higher levels within this range. Test Performed by: [facility] [address] [address] Research Home Economist: Leonidas John M.D. 32 RUN DATE: 04/30/14 [facility] LAB LIVE PAGE 1 RUN TIME: [address] [place], [place] [address] Specimen Inquiry Name: NILDA ULRICH : [address]: Dulce Molina NP Acct: [id number] Unit: [id number] AGE: 28 Location: [facility] Re04/28/14 SEX: F Status: REG REF SPEC: [id number] SARAH: 04/28/[address]: Dulce Molina NP REQ: [id number] RECD: 04/28/14 STATUS: COMP _ SOURCE: URINE SPDESC: ORDERED: Urine Culture Procedure Result Verified Site Urine Culture Final 04/30/14- 1031 ML Organism 1 NORMAL SILVINA [place] Count 25-50,000 (Moderate) CFU/ML END OF REPORT * ML=Testing performed at Main Lab DEPARTMENT OF PATHOLOGY, [address] [place] [address] Herbie Cuevas M.D. Director [facility] # [id number] 33 Effective 06/20/12, bilirubin confirmation by ictotest is discontinued. False-positive results for bilirubin may occur due to color interference from large amounts of blood in the urine, very concentrated urine, or drugs that discolor urine such as phenazopyridine(Pyridium). 34 Because ethnic data is not always readily available, this report includes an eGFR for both -Americans and non- Americans. The National Kidney Disease Education Program (NKDEP) does not endorse the use of the MDRD equation for patients that are not between the ages of 18 and 70, are , have extremes of body size, muscle mass, or nutritional status, or are non- or non-. According to the National Kidney Foundation, irrespective of diagnosis, the stage of the disease is based on the level of kidney function: Stage Description GFR(mL/min/1.73 m(2)) 1 Kidney damage with normal or decreased GFR 90 2 Kidney damage with mild decrease in GFR 60-89 3 Moderate decrease in GFR 30-59 4 Severe decrease in GFR 15-29 5 Kidney failure <15 (or dialysis) 35 A metabolite of Naproxen, O-desmethylnaproxen, has been shown to interfere with the Jendrassik-Geneva method for measuring total bilirubin. Samples from patients who have taken Naproxen have shown spurious elevation in total bilirubin levels. 36 Because ethnic data is not always readily available, this report includes an eGFR for both -Americans and non- Americans. The National Kidney Disease Education Program (NKDEP) does not endorse the use of the MDRD equation for patients that are not between the ages of 18 and 70, are , have extremes of body size, muscle mass, or nutritional status, or are non- or non-. According to the National Kidney Foundation, irrespective of diagnosis, the stage of the disease is based on the level of kidney function: Stage Description GFR(mL/min/1.73 m(2)) 1 Kidney damage with normal or decreased GFR 90 2 Kidney damage with mild decrease in GFR 60-89 3 Moderate decrease in GFR 30-59 4 Severe decrease in GFR 15-29 5 Kidney failure <15 (or dialysis) 37 Males: < 5.0 miu/ml Non females < 5.0 miu/ml Approx gestational age approx HCG range 0-1 week < 5.0-50 1-2 weeks 50-500 2-3 weeks 100-5000 3-4 weeks 500-10,000 1-2 months 10,000-200,000 2-3 months 15,000-100,000 Please note: The intended use of this assay is the quantitative determination of HCG in human serum or plasma for the early detection of . These assays should not be used to diagnose any condition unrelated to . If an HCG level is inconsistent with, or unsupported by, clinical evidence, results should be confirmed by an alternate HCG method. 38 ---- RUN DATE: 01/03/12 [facility] NMI LIVE PAGE 1 RUN TIME: 1318 Specimen Inquiry RUN USER: INTERFACE -- Name: NILDA ULRICH Status: REG REF Re01/02/12 Age/Sex: 26/F Unit#: [id number] Location: [facility]. : [birth year] -- Specimen: [id number] SOUT Spec Date:01/02/12-1339 [facility] Dr: Alley roberts NP Spec Type: CYTOLOGY Received:01/03/12 Copies to: Gianfranco Barnhart MD SOURCE ECTOCERVICAL/ENDOCERVICAL Thin Prep with Reflex HPV Test PATIENT INFORMATION ACTUAL COLLECTION DATE: 01/02/12 ? No POST MENOPAUSAL? No HYSTERECTOMY? No PREVIOUS ABNORMAL PAP SMEARS No LAST MENSTRUAL PERIOD: 12/09/11 ADEQUACY OF SPECIMEN Satisfactory for evaluation * Transformation zone component identified * DIAGNOSIS EPITHELIAL CELL ABNORMALITIES * Low grade squamous intraepithelial lesion (LSIL) encompassing: * HPV/mild dysplasia/CAROLYNN 1 * SUGGESTIONS Consider colposcopy, if clinically indicated * This Pap test was evaluated with the assistance of the ThinPrep Pap Test Imaging System. Due to cytologic findings at the lap layer microscope, comprehensive manual rescreening by a Lodging Facilities Manager was required. -- DEPARTMENT OF PATHOLOGY, [address] [place] [address] [facility] Permit #[id number] Herbie Cuevas M.D. Director Radha Neff M.D. Grooming Assistant Dir jennifer -- -- RUN DATE: 01/03/12 [facility] NMI LIVE PAGE 2 RUN TIME: 1318 Specimen Inquiry RUN USER: INTERFACE -- Name: NILDA ULRICH Status: REG REF Re01/02/12 Age/Sex: 26/F Unit#: [id number] Location: [facility] : [birth year] -- -- CONTINUED -- The Pap Smear is a screening test designed to aid in the detection of premalign ant and malignant conditions of the uterine cervix. It is not a diagnostic procedure a nd should not be used as the sole means of detecting cervical cancer. Both false- positiv e and false-negative reports do occur. Depending on your risk status, a Pap smear saul uld be obtained and evaluated every one to three years. Initial evaluation performed by Cathy REAVES([facility]) 01/03/12 Final Interpretation electronically signed by: RADHA NEFF 01/03/12 1318 -- -- DEPARTMENT OF PATHOLOGY, [address] [place] [address] [facility] Permit #[id number] Herbie Cuevas M.D. Director Radha Neff M.D. Grooming Assistant Dir jennifer -- 39 Anion gap measurement may be of limited value in the presence of any alkalosis, especially in a combined acid base disorder. . 40 A metabolite of Naproxen, O-desmethylnaproxen, has been shown to interfere with the Jendrassik-Arianna method for measuring total bilirubin. Samples from patients who have taken Naproxen have shown spurious elevation in total bilirubin levels. 41 Because ethnic data is not always readily available, this report includes an eGFR for both -Americans and non- Americans. The National Kidney Disease Education Program (NKDEP) does not endorse the use of the MDRD equation for patients that are not between the ages of 18 and 70, are , have extremes of body size, muscle mass, or nutritional status, or are non- or non-. According to the National Kidney Foundation, irrespective of diagnosis, the stage of the disease is based on the level of kidney function: Stage Description GFR(mL/min/1.73 m(2)) 1 Kidney damage with normal or decreased GFR 90 2 Kidney damage with mild decrease in GFR 60-89 3 Moderate decrease in GFR 30-59 4 Severe decrease in GFR 15-29 5 Kidney failure <15 (or dialysis) 42 New Reference Range and Interpretation effective 04/26/2002 TnI (ng/ml) INTERPRETATION Less Than 0.06 ng/mL NOT SUPPORTIVE OF DIAGNOSIS OF NV 0.06 - 0.50 ng/ml INDETERMINATE: SUGGEST SERIAL STUDIES IF CLINICALLY INDICATED. Greater than 0.5 ng/mL CONSISTENT WITH DIAGNOSIS OF NV . 43 Please note: The following may produce a false positive D Dimer test: - Rheumatoid factor greater than 1400 IU/ml - Plasma hemoglobin greater than 0.5 gm/dl - Bilirubin greater than 18 mg/dl - Triglycerides greater than 1327 mg/dl - FDP greater than 10 ug/ml . 44 ENTEROBACTER CLOACAE 25^10-25,000 ORGANISMS/ML (MODERATE)^CCU 45 ---- RUN DATE: 11/01/10 [facility] NMI LIVE PAGE 1 RUN TIME: 1211 Specimen Inquiry RUN USER: INTERFACE -- Name: NILDA ULRICH Status: REG REF Re10/29/10 Age/Sex: 24/F Unit#: [id number] Location: [facility] : [birth year] -- Specimen: [id number] SOUT Spec Date: 10/29/[address]: Alley cohn NP Spec Type: CYTOLOGY Received: 11/01/10 Copies to: Gianfranco Barnhart MD SOURCE ECTOCERVICAL/ENDOCERVICAL Thin Prep with Reflex HPV Test PATIENT INFORMATION ACTUAL COLLECTION DATE: 10/29/10 ? No POST MENOPAUSAL? No HYSTERECTOMY? No PREVIOUS ABNORMAL PAP SMEARS No LAST MENSTRUAL PERIOD: 10/11/10 ADEQUACY OF SPECIMEN Satisfactory for evaluation * Transformation zone component identified * DIAGNOSIS NEGATIVE FOR INTRAEPITHELIAL LESION OR MALIGNANCY * This Pap test was evaluated with the assistance of the ThinPrep Pap Test Imaging System. The Pap Smear is a screening test designed to aid in the detection of premalign ant and malignant conditions of the uterine cervix. It is not a diagnostic procedure a nd should not be used as the sole means of detecting cervical cancer. Both false- positiv e and false-negative reports do occur. Depending on your risk status, a Pap smear saul uld be obtained and evaluated every one to three years. Final Interpretation electronically signed by: Cathy REAVES([facility]) 11/01/10 121 1 -- -- DEPARTMENT OF PATHOLOGY, [address] [place] [address] [facility] Permit #[id number] Herbie Cuevas M.D. Director Radha Neff M.D. Grooming Assistant Dir rodriguez -- 46 This test was developed and its performance characteristics determined by [facility], [facility]. This test has not been cleared or approved by the U.S. Food and Drug Administration. Test performed by: [facility] [employer] [address] [place], [place] [address] HSV1^HERPES SIMPLEX TYPE I DNA DETECTED^HSV 47 NEGATIVE FOR NEISSERIA GONORRHOEAE AFTER 48 HOURS 48 NORMAL THROAT SILVINA 49 NEGATIVE FOR GROUP A BETA STREPTOCOCCUS 50 NBO^NO ORGANISMS SEEN^SM BCS^BY CYTOSPIN SMEAR^SM R^RARE^WBC 51 FINAL: NO GROWTH DAY 4 52 This test was developed and its performance characteristics determined by [facility], [facility]. This test has not been cleared or approved by the U.S. Food and Drug Administration. Test performed by: [facility] [address] [place], [place] [address] HSV1^HERPES SIMPLEX TYPE I DNA DETECTED^HSV 53 NO GROWTH AFTER 5 DAYS 54 NO GROWTH AFTER 5 DAYS 55 SMEAR REVIEWED BY RKP at 0918 on 10/01/09. N^NONE SEEN^WPCLUE N^ABSENT^WPTVAG MOD^MODERATE (1 TO 4/HPF)^WPWBC N^ABSENT^WPYEA 56 . A negative result does not preclude the presence of a C.trachomatis or N.gonorrhoeae infection because results are dependent on adequate specimen collection, absence of inhibitors, and sufficient rRNA to be detected. Test results may be affected by improper specimen collection, improper specimen storage, technical error, or specimen mixup. . 57 . A negative result does not preclude the presence of a C.trachomatis or N.gonorrhoeae infection because results are dependent on adequate specimen collection, absence of inhibitors, and sufficient rRNA to be detected. Test results may be affected by improper specimen collection, improper specimen storage, technical error, or specimen mixup. . 58 Anion gap measurement may be of limited value in the presence of any alkalosis, especially in a combined acid base disorder. . 59 Note change in reference range as of 03/13/08. The change was based on recommendations from the [place] [employer]. 60 Please note change in reference range effective 07 . 61 A metabolite of Naproxen, O-desmethylnaproxen, has been shown to interfere with the Jendrassik-Arianna method for measuring total bilirubin. Samples from patients who have taken Naproxen have shown spurious elevation in total bilirubin levels. 62 Because ethnic data is not always readily available, this report includes an eGFR for both -Americans and non- Americans. The National Kidney Disease Education Program (NKDEP) does not endorse the use of the MDRD equation for patients that are not between the ages of 18 and 70, are , have extremes of body size, muscle mass, or nutritional status, or are non- or non-. According to the National Kidney Foundation, irrespective of diagnosis, the stage of the disease is based on the level of kidney function: Stage Description GFR(mL/min/1.73 m(2)) 1 Kidney damage with normal or decreased GFR 90 2 Kidney damage with mild decrease in GFR 60-89 3 Moderate decrease in GFR 30-59 4 Severe decrease in GFR 15-29 5 Kidney failure <15 (or dialysis) 63 Anion gap measurement may be of limited value in the presence of any alkalosis, especially in a combined acid base disorder. . 64 Note change in reference range as of 03/13/08. The change was based on recommendations from the [place] [employer]. 65 Please note change in reference range effective 07 . 66 A metabolite of Naproxen, O-desmethylnaproxen, has been shown to interfere with the Jendrassik-Geneva method for measuring total bilirubin. Samples from patients who have taken Naproxen have shown spurious elevation in total bilirubin levels. 67 Because ethnic data is not always readily available, this report includes an eGFR for both -Americans and non- Americans. The National Kidney Disease Education Program (NKDEP) does not endorse the use of the MDRD equation for patients that are not between the ages of 18 and 70, are , have extremes of body size, muscle mass, or nutritional status, or are non- or non-. According to the National Kidney Foundation, irrespective of diagnosis, the stage of the disease is based on the level of kidney function: Stage Description GFR(mL/min/1.73 m(2)) 1 Kidney damage with normal or decreased GFR 90 2 Kidney damage with mild decrease in GFR 60-89 3 Moderate decrease in GFR 30-59 4 Severe decrease in GFR 15-29 5 Kidney failure <15 (or dialysis) 68 . A negative result does not preclude the presence of a C.trachomatis or N.gonorrhoeae infection because results are dependent on adequate specimen collection, absence of inhibitors, and sufficient rRNA to be detected. Test results may be affected by improper specimen collection, improper specimen storage, technical error, or specimen mixup. . 69 . A negative result does not preclude the presence of a C.trachomatis or N.gonorrhoeae infection because results are dependent on adequate specimen collection, absence of inhibitors, and sufficient rRNA to be detected. Test results may be affected by improper specimen collection, improper specimen storage, technical error, or specimen mixup. . 70 BETA STREP GROUP B NORMAL SILVINA 71 Anion gap measurement may be of limited value in the presence of any alkalosis, especially in a combined acid base disorder. . 72 Note change in reference range as of 03/13/08. The change was based on recommendations from the [place] [employer]. 73 Please note change in reference range effective 07 . 74 A metabolite of Naproxen, O-desmethylnaproxen, has been shown to interfere with the Jendrassik-Geneva method for measuring total bilirubin. Samples from patients who have taken Naproxen have shown spurious elevation in total bilirubin levels. 75 Because ethnic data is not always readily available, this report includes an eGFR for both -Americans and non- Americans. The National Kidney Disease Education Program (NKDEP) does not endorse the use of the MDRD equation for patients that are not between the ages of 18 and 70, are , have extremes of body size, muscle mass, or nutritional status, or are non- or non-. According to the National Kidney Foundation, irrespective of diagnosis, the stage of the disease is based on the level of kidney function: Stage Description GFR(mL/min/1.73 m(2)) 1 Kidney damage with normal or decreased GFR 90 2 Kidney damage with mild decrease in GFR 60-89 3 Moderate decrease in GFR 30-59 4 Severe decrease in GFR 15-29 5 Kidney failure <15 (or dialysis) 76 If is still suspected, please repeat test after 48 to 72 hours. . 77 Anion gap measurement may be of limited value in the presence of any alkalosis, especially in a combined acid base disorder. . 78 Note change in reference range as of 03/13/08. The change was based on recommendations from the [place] [employer]. 79 Please note change in reference range effective 07 . 80 A metabolite of Naproxen, O-desmethylnaproxen, has been shown to interfere with the Jendrassik-Arianna method for measuring total bilirubin. Samples from patients who have taken Naproxen have shown spurious elevation in total bilirubin levels. 81 Because ethnic data is not always readily available, this report includes an eGFR for both -Americans and non- Americans. The National Kidney Disease Education Program (NKDEP) does not endorse the use of the MDRD equation for patients that are not between the ages of 18 and 70, are , have extremes of body size, muscle mass, or nutritional status, or are non- or non-. According to the National Kidney Foundation, irrespective of diagnosis, the stage of the disease is based on the level of kidney function: Stage Description GFR(mL/min/1.73 m(2)) 1 Kidney damage with normal or decreased GFR 90 2 Kidney damage with mild decrease in GFR 60-89 3 Moderate decrease in GFR 30-59 4 Severe decrease in GFR 15-29 5 Kidney failure <15 (or dialysis) 82 Anion gap measurement may be of limited value in the presence of any alkalosis, especially in a combined acid base disorder. . 83 Note change in reference range as of 03/13/08. The change was based on recommendations from the [place] [employer]. 84 Please note change in reference range effective 07 . 85 MONOSPOT ADDED PER PATHOLOGIST'S REQUEST 86 REVIEWED BY RADHA COLÓN MD 87 If is still suspected, please repeat test after 48 to 72 hours. . 88 If is still suspected, please repeat test after 48 to 72 hours. . 89 Anion gap measurement may be of limited value in the presence of any alkalosis, especially in a combined acid base disorder. . 90 Note change in reference range as of 03/13/08. The change was based on recommendations from the [place] [employer]. 91 Please note change in reference range effective 07 . 92 Anion gap measurement may be of limited value in the presence of any alkalosis, especially in a combined acid base disorder. . 93 FINAL: NO GROWTH DAY 2 (<1,000 CFU/mL) 94 Anion gap measurement may be of limited value in the presence of any alkalosis, especially in a combined acid base disorder. . 95 Anion gap measurement may be of limited value in the presence of any alkalosis, especially in a combined acid base disorder. . 96 * MALES: < 5.0 MIU/ML NON FEMALES < 5.0 MIU/ML APPROX GESTATIONAL AGE APPROX HCG RANGE 0-1 WEEK < 5.0-50 1-2 WEEKS 50-500 2-3 WEEKS 100-5000 3-4 WEEKS 500-10,000 1-2 MONTHS 10,000-200,000 2-3 MONTHS 15,000-100,000 PLEASE NOTE: The intended use of this assay is the quantitative determination of HCG in human serum or plasma for the early detection of . These assays should not be used to diagnose any condition unrelated to . If an HCG level is inconsistent with, or unsupported by, clinical evidence, results should be confirmed by an alternate HCG method. . 97 SPECIMEN CONTAINS NORMAL URETHRAL OR PERINEAL SILVINA AND DOES NOT SUGGEST URINARY TRACT INFECTION 50^25-50,000 ORGANISMS/ML (MODERATE)^CCU Procedures Date Code Description Status 03/31/2008 44884 Holter Monitor-24 hrs,w/interpretation Completed 03/28/2008 09060 EKG, at Least 12 Leads w/Interpretation and Report Completed Encounters Type Date Location Provider Dx Diagnosis Office Visit 04/04/2018 Main Office Gianfranco Barnhart M.D. 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 hyperhidrosis Office Visit 03/01/2018 10:15a Main Office Daniella Ovalle Generalized M.D. 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 Office Visit 07/11/2017 3:00p Main Office [place] N64.59 Other signs and [place], OBGYN HOSPITALIST PHYSICIAN symptoms in breast Office Visit 01/04/2017 11:15a Main Office Dulce Molina R60.9 Edema, unspecified CAR MECH[employer]IC-C M25.50 Pain in unspecified joint Office Visit 11/22/2016 4:45p Main Office Dulce Molina, N92.6 Irregular CAR MECHANIC-C menstruation, unspecified Office Visit 09/20/2016 10:30a Main Office Dulce Molina, J02.0 Streptococcal [facility] pharyngitis Office Visit 07/26/2016 11:15a Main Office Dulce Molina, Z00.00 Encntr for general [facility] adult medical exam w/o abnormal findings E28.2 Polycystic ovarian syndrome M25.551 Pain in right hip Z23 Encounter for immunization Office Visit 06/07/2016 2:15p Main Office Dulce Molina, M25.551 Pain in right [facility] hip M25.552 Pain in left hip F33.0 Major depressive disorder, recurrent, mild E55.9 Vitamin D deficiency, unspecified N76.0 Acute vaginitis N91.2 Amenorrhea, unspecified Office Visit 06/05/2015 8:45a Main Office Dulce Molina, F41.9 Anxiety disorder, [facility] unspecified F33.0 Major depressive disorder, recurrent, mild Office Visit 05/06/2015 9:00a Main Office Dulce Molina, F41.9 Anxiety disorder, [facility] unspecified F33.0 Major depressive disorder, recurrent, mild E55.9 Vitamin D deficiency, unspecified Office Visit 08/12/2014 4:00p Main Office Gianfranco Barnhart M.D. 311 Depressive Disorder Not Elsewhere Spec Office Visit 04/28/2014 11:15a Main Office Dulce Molina, 599.0 UTI Urinary Tract [facility] Infection Site Not Spec Office Visit 12/23/2013 2:30p Main Office Dulce Molina, 845.09 Sprains & Strains [facility] Ankle Other Office Visit 12/03/2013 3:45p Main Office Dulce Molina, 782.3 Edema [facility] Office Visit 11/12/2013 2:45p Main Office Dulce Molina, 724.5 Backache Unspec [facility] Office Visit 06/07/2013 9:15a Main Office Dulce Molina, 371.9 Corneal Disorder [facility] Unspec Office Visit 03/08/2013 10:45a Main Office Dulce Molina, 724.9 Back Disorders [facility] Other Unspec Office Visit 02/01/2013 10:00a Main Office Dulce Molina, 528.5 Oral Soft Tissue [facility] Excluding Gingiva & Tongue Lip Diseases 300.00 Anxiety State Unspec 256.4 Polycystic Ovaries Office Visit 2012 10:15a Main Office Ashly Romero, 724.3 Sciatica [facility] Office Visit 10/05/2012 2:45p Main Office Dulce Molina, 528.5 Oral Soft Tissue [facility] Excluding Gingiva & Tongue Lip Diseases Office Visit 10/03/2012 3:15p Main Office Dulce Molina, 528.5 Oral Soft Tissue [facility] Excluding Gingiva & Tongue Lip Diseases 300.00 Anxiety State Unspec Office Visit 08/06/2012 4:00p Main Office Dulce Molina, 311 Depressive Disorder [facility] Not Elsewhere Spec Office Visit 07/09/2012 3:45p Main Office Dulce Molina, 311 Depressive Disorder [facility] Not Elsewhere Spec Office Visit 05/07/2012 1:30p Main Office Dulce Molina, V70.0 Examination General [facility] Medical Routine AT [facility] 626.0 Menstruation Absence 780.79 Malaise And Fatigue Other V74.1 Screening Examination Pulmonary Tuberculosis Office Visit 04/10/2012 2:15p Main Office Ashly Tobar 465.9 URI Upper Storm, [facility] Respiratory Infections Acute Unspec Sites Office Visit 01/16/2012 3:30p Main Office Dulce Molina, 724.5 Backache Unspec [facility] Office Visit 12/21/2011 11:30a Main Office Dulce Molina, 724.9 Back Disorders Other [facility] Unspec Office Visit 12/06/2011 3:45p Main Office Dulce Molina 724.5 Backache Unspec [facility] Office Visit 11/23/2011 3:00p Main Office Dulce Molina, 724.5 Backache Unspec [facility] Office Visit 11/14/2011 9:15a Main Office Dulce Molina 724.5 Backache Unspec [facility] Office Visit 11/07/2011 11:00a Main Office Dulce Molina 724.5 Backache Unspec [facility] Office Visit 10/21/2011 4:00p Main Office Dulce Molina, 724.5 Backache Unspec [facility] Office Visit 08/12/2011 12:45p Main Office Gianfranco Barnhart M.D. 455.3 Hemorrhoids External W/O Complication Office Visit 03/07/2011 1:30p Main Office Dulce Molina, V70.0 Examination General [facility] Medical Routine AT Health Care Facility V74.1 Screening Examination Pulmonary Tuberculosis Office Visit 10/04/2010 2:45p Main Office Flor Bro, 682.3 Cellulitis & Abscess Amol, RBrenda Upper Arm & Forearm Office Visit 09/21/2010 9:30a Main Office Ariadne Woodruff, 381.01 Otitis Media Serous OBGYN HOSPITALIST PHYSICIAN Acute Office Visit 11/23/2009 11:30a Main Office Ashly Belle6.19 Shoulder Disorders Storm, [facility] Other Spec Office Visit 10/08/2009 4:45p Main Office Gianfranco Barnhart M.D. 528.2 Oral Soft Tissue Disease Exclu Gingiva & Tongue Oral Aphthae Office Visit 08/27/2009 3:00p Main Office Gianfranco Barnhart M.D. 034.0 Streptococcal Sore Throat Office Visit 07/14/2009 3:45p Main Office Gianfranco Barnhart M.D. 599.0 UTI Urinary Tract Infection Site Not Spec Office Visit 04/07/2009 11:15a Main Office Ashly Belle6.19 Shoulder Disorders Storm, [facility]-C Other Spec Office Visit 04/03/2009 2:15p Main Office Ashly Belle6.19 Shoulder Disorders Storm, [facility]-C Other Spec Office Visit 11/11/2008 11:45a Main Office Yasmine Benites 724.9 Back Disorders Lesvia Mary M.D. Unspec Office Visit 09/03/2008 11:45a Main Office Lizbeth Evans 719.46 Pain Joint Lower Leg Blanche Deutsch Office Visit 06/06/2008 11:30a Main Office Gianfranco Barnhart M.D. 891.0 Open Wound Knee Leg (Except Thigh) & Ankle W/O Complication Office Visit 03/28/2008 11:30a Main Office Lizbeth Evans 785.1 Palpitations Blanche Deutsch Office Visit 05/22/2007 3:15p Main Office Gianfranco Barnhart M.D. 626.9 Menstruation & Other Abnormal Bleeding Disorders Unspec Office Visit 04/03/2007 10:00a Main Office Gianfranco Barnhart M.D. 626.9 Menstruation & Other Abnormal Bleeding Disorders Unspec Office Visit 06/21/2006 2:00p Main Office Gianfranco Barnhart M.D. 726.19 Shoulder Disorders Other Spec Office Visit 12/15/2005 4:00p Main Office Gianfranco Barnhart M.D. 386.10 Vertigo Peripheral Unspec 789.02 Pain Abdominal Left Upper Quadrant V22.2 State Incidental Normal Office Visit 10/21/2004 4:30p Main Office Gianfranco Barnhart 789.01 Pain Abdominal Right M.D. Upper Quadrant Office Visit 07/15/2004 2:45p Main Office Gianfranco Barnhart, 311 Depressive Disorder M.D. Not Elsewhere Spec Office Visit 06/27/2003 2:15p Main Office Gianfranco Barnhart, 346.80 Migraine Other W/O M.D. 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 at [facility]/14 - Gianfranco Barnhart M.D.M54.5 Low back painNew Medication:Methocarbamol 500 mg - 1-2 po qid prnComments:Low back strain without evidence of nerve deficit.Continue NSAIDs and rest. Will avoid activities at work that provoke the pain.Also given trial of methocarbamolFollow up:Provide work note (on printer) and recheck 2 weeks.
[2018-06-11 16:16] VITALS: BP 121/69
--- NOTE | 2018-06-11 16:22 | UC ---
Dental HPI - HPI Summary HPI Summary: 32 yo female presents with right lower jaw pain and bump for the last 2 days. She has a dentist, but says she has an intense fear of going to the dentist and therefore does not go often. She is able to eat and drink, but has pain in this area when doing so. She denies fever, chills, or injury to the area. - History of Current Complaint Chief Complaint: UCDentalProblem Stated Complaint: DENTAL Time Seen by Provider: 06/11/18 16:22 Hx Obtained From: Patient Hx Last Menstrual Period: [id number] Onset/Duration: Gradual Onset Severity: Moderate Pain Intensity: 4 Pain Scale Used: 0-10 Numeric - Allergies/Home Medications Allergies/Adverse Reactions: Allergies Allergy/AdvReac Type Severity Reaction Status Date / Time bacitracin Allergy Rash Verified 06/11/18 16:17 [From Neosporin ([id number])] Latex, Natural Rubber Allergy Rash Verified 06/11/18 16:17 neomycin Allergy Rash Verified 06/11/18 16:17 [From Neosporin (roc-[id number])] polymyxin B Allergy Rash Verified 06/11/18 16:17 [From Neosporin ([id number])] Home Medications: Home Medications Cholecalciferol (Vitamin D3) [Vitamin D3] 1 tab PO DAILY 06/11/18 [History Confirmed 06/11/18] Ethinyl Estradiol/Drospirenone [Drospirenone/Ethinyl Estr] 1 tab PO DAILY [History Confirmed 06/11/18] PMH/Surg Hx/FS Hx/Imm Hx - Additional Past Medical History Additional PMH: None Other History Of: Negative For: Anticoagulant Therapy - Surgical History Surgical History: Yes Surgery Procedure, Year, and Place: EXPLORATORY FOR PELVIC PAIN 2009, C SECTION 12/2007 - Family History Known Family History: Positive: Non-Contributory Negative: Hypertension - Social History Occupation: Employed Full-time Lives: With Family Alcohol Use: Rare Substance Use Type: None Smoking Status (MU): Heavy Every Day Tobacco Smoker Type: Cigarettes Amount Used/How Often: 1/2 ppd Review of Systems All Other Systems Reviewed And Are Negative: Yes Constitutional: Positive: Negative Skin: Positive: Negative Eyes: Positive: Negative ENT: Positive: Dental Pain Respiratory: Positive: Negative Cardiovascular: Positive: Negative Neurovascular: Positive: Negative Neurological: Positive: Negative Psychological: Positive: Negative Physical Exam - Summary Physical Exam Summary: GENERAL: NAD. WDWN. No pain distress. SKIN: RIGHT JAW: 1.0cm mobile abscess vs cyst NECK: Supple. Nontender. No lymphadenopathy. CHEST: No accessory muscle use. Breathing comfortably and in no distress. CV: Pulses intact. Cap refill <2seconds NEURO: Alert. PSYCH: Age appropriate behavior. Triage Information Reviewed: Yes Vital Signs: Initial Vital Signs Temp 97.5 F 06/11/18 16:11 Pulse 76 06/11/18 16:11 Resp 16 06/11/18 16:11 BP 121/69 06/11/18 16:11 Pulse Ox 100 06/11/18 16:11 Vital Signs Reviewed: Yes Dental: Positive: Percussion Tenderness @ - Tooth #29, Abscess @ - Tooth #29. Negative: Gross Decay/Caries @, Dental Fracture @, Cellulitis @, Cervical Lymphadenopathy, Bleeding Dental Complaint Course/Dx - Course Course Of Treatment: Tooth #29 abscess vs soft tissue cyst - will treat with Amoxicillin and have her f/u if her symptoms do not improve. - Differential Dx/Diagnosis Provider Diagnoses: Tooth #29 abscess Discharge - Sign-Out/Discharge Documenting (check all that apply): Patient Departure All imaging exams completed and their final reports reviewed: No Studies - Discharge Plan Condition: Stable Disposition: HOME Prescriptions: Amoxicillin PO (*) [Amoxicillin 500 MG CAP*] 500 mg PO Q12H #14 cap Patient Education Materials: Dental Abscess (ED) Referrals: Gianfranco Barnhart MD [Primary Care Provider] - Additional Instructions: If you develop a fever, shortness of breath, chest pain, new or worsening symptoms - please call your PCP or go to the ED. - Billing Disposition and Condition Condition: STABLE Disposition: Home
== END 2018-06-11 16:38 | disposition home or self-care (01) ==
LOC: UCEAST 16:03
DX: K04.7 Periapical abscess without sinus (principal); F17.210 Nicotine dependence, cigarettes, uncomplicated
CPT/HCPCS: 99212; G0463